=== PATIENT | male | born 1990 | race Caucasian/White ===

== ENCOUNTER 2017-01-06 22:53 | Inpatient (IN) | payer MEDICAID, OTHER ==
[~2017-01-06] VITALS: Ht 175.3 cm; Wt 87.1 kg
[~2017-01-06 22:53] MED LIST: BENZ0.5T6 PO; CITA20TA9 PO; CLOZ100 PO; ESOM20CA31 PO; HALO5 PO; LITH300C3 PO; LORA10I IM; LORA2TAB2 PO; SIME120L PO
[2017-01-06] MEDS ORDERED: DIVA500T52 PO (23:09)
[2017-01-06] MEDS ORDERED: BUSP10TA23 PO (23:09)
[2017-01-06] MEDS ORDERED: LEVO25TA4 PO (23:09)
[2017-01-06] MEDS ORDERED: QUET200T PO (23:09)
[2017-01-06 23:16] LABS: BASOPHILS % (AUTO) 0.4 % (0.0-2.0); EOSINOPHILS % (AUTO) 0.4 % (1.0-6.0); HEMATOCRIT 39.7 % (41-53); HEMOGLOBIN 13.1 g/dL (13.5-17.5); LYMPHOCYTES % (AUTO) 15.5 % (22.0-44.0); MEAN CORPUSCULAR HEMOGLOBIN 29.5 pg (26.0-34.0); MEAN CORPUSCULAR HGB CONC 33.1 G/dL (31.0-37.0); MEAN CORPUSCULAR VOLUME 89 fL (80-100); MONOCYTES # (AUTO) 1.1 K/uL (0.1-1.0); MONOCYTES % (AUTO) 8.6 % (2.0-9.0); NEUTROPHILS # (AUTO) 9.6 K/uL (1.8-7.7); NEUTROPHILS % (AUTO) 75.1 % (40.0-70.0); PLATELET COUNT (AUTO) 234 K/uL (150-450); RED BLOOD CELL COUNT(AUTO) 4.46 MIL/uL (4.50-5.90); RED CELL DISTRIBUTION WIDTH 14.1 % (11.5-14.5); WHITE BLOOD COUNT (AUTO) 12.8 K/uL (4.5-11.0)
[2017-01-06 23:28] LABS: ANION GAP 6 mmol/L (8-16); CALCIUM, TOTAL 8.5 mg/dL (8.8-10.5); CARBON DIOXIDE 30 mmol/L (22-29); CHLORIDE 104 mmol/L (98-107); CREATININE 1.11 mg/dL (0.60-1.30); GLOMERULAR FILTR. RATE CALC > 60 mL/min (>60); POTASSIUM 3.7 mmol/L (3.5-5.1); SODIUM SERUM 140 mmol/L (136-145); UREA NITROGEN, BLOOD 15 mg/dL (7-18)
[2017-01-06 23:34] LABS: ALANINE AMINOTRANSFERASE 17 U/L (12-78); ALBUMIN 3.7 g/dL (3.4-5.0); ASPARTATE AMINOTRANSFERASE 14 U/L (15-37); BILIRUBIN,TOTAL 0.2 mg/dL (0.1-1.0)
[2017-01-06 23:35] LABS: LITHIUM 0.85 mmol/L (0.60-1.20)
[2017-01-07] MEDS ORDERED: HALOPERIDOL LACTATE 5 MG/ML VIAL IM ONE (00:15)
[2017-01-07] MEDS ORDERED: LORazepam 2 MG/ML VIAL IM ONE (00:15)
[2017-01-07 02:30] VITALS: BP 128/88
[2017-01-07 03:14] LABS: APPEARANCE,URINE CLEAR (CLEAR); GLUCOSE, URINE (UA) NEGATIVE (NEGATIVE); KETONES,URINE NEGATIVE (NEGATIVE); LEUKOCYTE ESTERASE ,URINE NEGATIVE (NEGATIVE); OCCULT BLOOD,URINE NEGATIVE (NEGATIVE); PROTEIN,URINE NEGATIVE (NEGATIVE)
[2017-01-07 03:15] LABS: ADD UA MICROSCOPIC NO
[2017-01-07] MEDS: LORazepam 2 MG TABLET PO PRN (08:02)
[2017-01-07 08:56] VITALS: BP 128/94
[2017-01-07] MEDS ORDERED: CloZAPine 100 MG TABLET PO SCH ×2 (09:00→21:00)
[2017-01-07] MEDS ORDERED: BENZTROPINE MESYLATE 0.5 MG TABLET PO SCH (09:00)
[2017-01-07] MEDS: CITALOPRAM HYDROBROMIDE 20 MG TABLET PO SCH (09:00)
[2017-01-07] MEDS ORDERED: BACITRACIN 28.4 GM OINTMENT TP PRN (09:00)
[2017-01-07] MEDS ORDERED: ALBUTEROL SULFATE HFA 90 MCG/PUFF 8 GM INHALER IH PRN (09:00)
[2017-01-07] MEDS ORDERED: BENZOCAINE/MENTHOL LOZENGE [8 LOZENGES/PACKET] MM PRN (09:00)
[2017-01-07] MEDS ORDERED: LOPERAMIDE HCL 2 MG CAPSULE PO PRN (09:00)
[2017-01-07] MEDS ORDERED: CloNIDine HCL 0.1 MG TABLET PO PRN (09:00)
[2017-01-07] MEDS ORDERED: ONDANSETRON HCL 4 MG TABLET PO PRN (09:00)
[2017-01-07] MEDS ORDERED: ACETAMINOPHEN 325 MG TABLET PO PRN (09:00)
[2017-01-07] MEDS ORDERED: PETROLATUM,WHITE 71 GM JELLY TP PRN (09:00)
[2017-01-07] MEDS ORDERED: MAG HYDROX/AL HYDROX/SIMETH ES 30 ML SUSPENSION UDCUP PO PRN (09:00)
[2017-01-07] MEDS ORDERED: MAGNESIUM HYDROXIDE SUSPENSION 30 ML UDCUP PO PRN (09:00)
[2017-01-07] MEDS ORDERED: LITHIUM CARBONATE 300 MG CAPSULE PO SCH (09:00)
[2017-01-07] MEDS ORDERED: IBUPROFEN 600 MG TABLET PO PRN (09:00)
[2017-01-07] MEDS: LEVOTHYROXINE SODIUM 100 MCG TABLET PO SCH (11:17)
[2017-01-07 12:37] VITALS: BP 128/94
[2017-01-07] MEDS ORDERED: LITH600 PO (13:32)
[2017-01-07] MEDS ORDERED: VALPROIC ACID 250 MG CAPSULE PO SCH (17:00)
[2017-01-07] MEDS: VALPROIC ACID 250 MG/5 ML SYRUP UDCUP PO SCH (17:55)
[2017-01-07] MEDS: BENZTROPINE MESYLATE 0.5 MG TABLET PO SCH (17:55)
[2017-01-07 18:50] VITALS: BP 131/79
[2017-01-07] MEDS: LITHIUM CARBONATE 600 MG CAPSULE PO SCH (20:26)
[2017-01-07] MEDS: CloZAPine 100 MG RAPDIS TABLET PO SCH (20:26)
[2017-01-07] MEDS ORDERED: LITHIUM CARBONATE 600 MG CAPSULE PO SCH (21:00)
[2017-01-07] MEDS ORDERED: QUEtiapine FUMARATE 200 MG TABLET PO SCH (21:00)
[2017-01-07] MEDS ORDERED: DIVALPROEX SODIUM 500 MG DR TABLET PO SCH (21:00)
[2017-01-08 06:47] LABS: LITHIUM 0.62 mmol/L (0.60-1.20)
[2017-01-08] MEDS: LEVOTHYROXINE SODIUM 100 MCG TABLET PO SCH (06:47)
[2017-01-08 07:23] LABS: THYROID STIMULATING HORMONE 4.12 uIU/mL (0.36-3.74)
[2017-01-08 08:05] VITALS: BP 116/62
[2017-01-08] MEDS: CloZAPine 100 MG RAPDIS TABLET PO SCH ×2 (08:10→20:28)
[2017-01-08] MEDS: LITHIUM CARBONATE 300 MG CAPSULE PO SCH (08:10)
[2017-01-08] MEDS: VALPROIC ACID 250 MG/5 ML SYRUP UDCUP PO SCH ×2 (08:10→16:30)
[2017-01-08] MEDS: BENZTROPINE MESYLATE 0.5 MG TABLET PO SCH ×2 (08:11→16:29)
[2017-01-08] MEDS: LORazepam 2 MG TABLET PO PRN ×2 (08:11→12:14)
[2017-01-08] MEDS: CITALOPRAM HYDROBROMIDE 20 MG TABLET PO SCH (08:11)
[2017-01-08] MEDS: HALOPERIDOL 5 MG TABLET PO PRN (12:15)
[2017-01-08 16:10] VITALS: BP 126/78
[2017-01-08] MEDS: LITHIUM CARBONATE 600 MG CAPSULE PO SCH (20:28)
[2017-01-08] MEDS: ZOLPIDEM TARTRATE 10 MG TABLET PO PRN (20:51)
[2017-01-09] MEDS: LEVOTHYROXINE SODIUM 100 MCG TABLET PO SCH (06:31)
[2017-01-09 08:40] VITALS: BP 114/75
[2017-01-09] MEDS: CITALOPRAM HYDROBROMIDE 20 MG TABLET PO SCH (08:40)
[2017-01-09] MEDS: BENZTROPINE MESYLATE 0.5 MG TABLET PO SCH ×2 (08:40→17:36)
[2017-01-09] MEDS: CloZAPine 100 MG RAPDIS TABLET PO SCH ×2 (08:41→22:00)
[2017-01-09] MEDS: LITHIUM CARBONATE 300 MG CAPSULE PO SCH (08:41)
[2017-01-09] MEDS: VALPROIC ACID 250 MG/5 ML SYRUP UDCUP PO SCH ×2 (08:41→17:36)
[2017-01-09 17:19] VITALS: BP 119/76
[2017-01-09] MEDS: LITHIUM CARBONATE 600 MG CAPSULE PO SCH (22:00)
[2017-01-10] MEDS: LEVOTHYROXINE SODIUM 100 MCG TABLET PO SCH (06:33)
[2017-01-10] MEDS: CloZAPine 100 MG RAPDIS TABLET PO SCH ×2 (08:16→20:10)
[2017-01-10] MEDS: BENZTROPINE MESYLATE 0.5 MG TABLET PO SCH ×2 (08:16→16:53)
[2017-01-10] MEDS: CITALOPRAM HYDROBROMIDE 20 MG TABLET PO SCH (08:16)
[2017-01-10] MEDS: VALPROIC ACID 250 MG/5 ML SYRUP UDCUP PO SCH ×2 (08:18→16:51)
[2017-01-10] MEDS: LITHIUM CARBONATE 300 MG CAPSULE PO SCH (08:18)
[2017-01-10] MEDS: HALOPERIDOL 5 MG TABLET PO PRN ×2 (08:19→13:10)
[2017-01-10] MEDS: LORazepam 2 MG TABLET PO PRN ×2 (08:19→13:10)
[2017-01-10 12:04] LABS: CLOZAPINE 332 ng/mL (350-650); CLOZAPINE & NORCLOZAPINE 417 ng/mL; NORCLOZAPINE 85 ng/mL (Not Estab.)
[2017-01-10 16:25] VITALS: BP 115/75
[2017-01-10] MEDS: LITHIUM CARBONATE 600 MG CAPSULE PO SCH (20:11)
[2017-01-10] MEDS: ZOLPIDEM TARTRATE 10 MG TABLET PO PRN (21:22)
[2017-01-11] MEDS: LEVOTHYROXINE SODIUM 100 MCG TABLET PO SCH (06:53)
[2017-01-11] MEDS: CITALOPRAM HYDROBROMIDE 20 MG TABLET PO SCH (08:15)
[2017-01-11] MEDS: VALPROIC ACID 250 MG/5 ML SYRUP UDCUP PO SCH ×2 (08:16→16:17)
[2017-01-11] MEDS: BENZTROPINE MESYLATE 0.5 MG TABLET PO SCH ×2 (08:16→16:17)
[2017-01-11] MEDS: CloZAPine 100 MG RAPDIS TABLET PO SCH ×2 (08:17→21:33)
[2017-01-11] MEDS: LITHIUM CARBONATE 300 MG CAPSULE PO SCH (08:17)
[2017-01-11 08:40] VITALS: BP 142/88
[2017-01-11 16:16] VITALS: BP 132/76
[2017-01-11] MEDS: HALOPERIDOL 5 MG TABLET PO PRN (19:45)
[2017-01-11] MEDS: LORazepam 2 MG TABLET PO PRN (19:45)
[2017-01-11] MEDS: LITHIUM CARBONATE 600 MG CAPSULE PO SCH (21:32)
[2017-01-12] MEDS: LEVOTHYROXINE SODIUM 100 MCG TABLET PO SCH (06:35)
[2017-01-12] MEDS: CloZAPine 100 MG RAPDIS TABLET PO SCH ×2 (08:17→21:11)
[2017-01-12] MEDS: LITHIUM CARBONATE 300 MG CAPSULE PO SCH (08:17)
[2017-01-12] MEDS: BENZTROPINE MESYLATE 0.5 MG TABLET PO SCH ×2 (08:17→16:05)
[2017-01-12] MEDS: VALPROIC ACID 250 MG/5 ML SYRUP UDCUP PO SCH ×2 (08:17→16:05)
[2017-01-12] MEDS: CITALOPRAM HYDROBROMIDE 20 MG TABLET PO SCH (08:17)
[2017-01-12 16:16] VITALS: BP 136/79
[2017-01-12] MEDS: LITHIUM CARBONATE 600 MG CAPSULE PO SCH (21:10)
[2017-01-13 06:33] LABS: BASOPHILS % (AUTO) 0.2 % (0.0-2.0); EOSINOPHILS % (AUTO) 1.8 % (1.0-6.0); HEMATOCRIT 39.4 % (41-53); HEMOGLOBIN 13.2 g/dL (13.5-17.5); LYMPHOCYTES # (AUTO) 2.8 K/uL (1.0-4.8); MEAN CORPUSCULAR HGB CONC 33.4 G/dL (31.0-37.0); MEAN CORPUSCULAR VOLUME 90 fL (80-100); MONOCYTES # (AUTO) 0.8 K/uL (0.1-1.0); MONOCYTES % (AUTO) 7.5 % (2.0-9.0); NEUTROPHILS # (AUTO) 7.2 K/uL (1.8-7.7); NEUTROPHILS % (AUTO) 65.5 % (40.0-70.0); PLATELET COUNT (AUTO) 208 K/uL (150-450); RED CELL DISTRIBUTION WIDTH 13.8 % (11.5-14.5)
[2017-01-13] MEDS: LEVOTHYROXINE SODIUM 100 MCG TABLET PO SCH (06:56)
[2017-01-13] MEDS ORDERED: LITH600 PO (08:27)
[2017-01-13] MEDS ORDERED: VALP5L PO (08:27)
[2017-01-13] MEDS ORDERED: PALI234D IM (08:27)
[2017-01-13] MEDS ORDERED: BENZ0.5T6 PO (08:27)
[2017-01-13] MEDS ORDERED: [UNRECOGNIZED DRUG - CODE] PO ×2 (08:27)
[2017-01-13] MEDS ORDERED: CITA20TA17 PO (08:27)
[2017-01-13] MEDS ORDERED: LITH300C3 PO (08:27)
[2017-01-13] MEDS: LITHIUM CARBONATE 300 MG CAPSULE PO SCH (08:37)
[2017-01-13] MEDS: VALPROIC ACID 250 MG/5 ML SYRUP UDCUP PO SCH (08:37)
[2017-01-13] MEDS: CITALOPRAM HYDROBROMIDE 20 MG TABLET PO SCH (08:37)
[2017-01-13] MEDS: HALOPERIDOL 5 MG TABLET PO PRN (08:37)
[2017-01-13] MEDS: BENZTROPINE MESYLATE 0.5 MG TABLET PO SCH (08:37)
[2017-01-13] MEDS: CloZAPine 100 MG RAPDIS TABLET PO SCH (08:37)
[2017-01-13] MEDS: LORazepam 2 MG TABLET PO PRN (08:37)
[2017-01-13] MEDS ORDERED: FERROUS SULFATE 325 MG EC TABLET PO SCH (17:30)
[2017-01-20] MEDS ORDERED: PALIPERIDONE PALMITATE 234 MG/1.5 ML SYRINGE IM SCH (09:00)
== END 2017-01-13 09:15 | DRG 750 ==
LOC: EMS 22:56 → 3EC 01-07 02:30
DX: F25.0 Schizoaffective disorder, bipolar type (principal); E83.51 Hypocalcemia; E03.9 Hypothyroidism, unspecified; F20.0 Paranoid schizophrenia; K59.00 Constipation, unspecified; K21.9 Gastro-esophageal reflux disease without esophagitis; T18.9XXA Foreign body of alimentary tract, part unspecified, initial encounter; F17.200 Nicotine dependence, unspecified, uncomplicated; G47.00 Insomnia, unspecified; F12.90 Cannabis use, unspecified, uncomplicated; Z71.6 Tobacco abuse counseling; Z71.51 Drug abuse counseling and surveillance of drug abuser; X58.XXXA Exposure to other specified factors, initial encounter; Y93.89 Activity, other specified; Y92.89 Other specified places as the place of occurrence of the external cause; Y99.8 Other external cause status; Z79.899 Other long term (current) drug therapy
CPT/HCPCS: 74022; 80159; 82306; 84439; 84443; 87081; 96372; 99285; G0480; J1630; J2060; J3535

== ENCOUNTER 2017-01-13 13:19 | Inpatient (IN) | payer MEDICAID, OTHER ==
[~2017-01-13] VITALS: Ht 185.4 cm; Wt 86.2 kg
[~2017-01-13 13:19] MED LIST changes: +BUSP10TA23 PO; +CITA20TA17 PO; -CITA20TA9 PO; +DIVA500T52 PO; -ESOM20CA31 PO; +LEVO25TA4 PO; +LITH600 PO; +PALI234D IM; +QUET200T PO; -SIME120L PO; +VALP5L PO; +[UNRECOGNIZED DRUG - CODE] PO
[2017-01-14 08:30] VITALS: BP 120/76
[2017-01-14] MEDS: LORazepam 2 MG TABLET PO PRN (08:49)
[2017-01-14] MEDS: HALOPERIDOL 5 MG TABLET PO PRN (08:49)
[2017-01-14] MEDS ORDERED: LOPERAMIDE HCL 2 MG CAPSULE PO PRN (10:15)
[2017-01-14] MEDS ORDERED: MAGNESIUM HYDROXIDE SUSPENSION 30 ML UDCUP PO PRN (10:15)
[2017-01-14] MEDS ORDERED: PETROLATUM,WHITE 71 GM JELLY TP PRN (10:15)
[2017-01-14] MEDS ORDERED: CloNIDine HCL 0.1 MG TABLET PO PRN (10:15)
[2017-01-14] MEDS ORDERED: BACITRACIN 28.4 GM OINTMENT TP PRN (10:15)
[2017-01-14] MEDS ORDERED: ALBUTEROL SULFATE HFA 90 MCG/PUFF 8 GM INHALER IH PRN (10:15)
[2017-01-14] MEDS ORDERED: BENZOCAINE/MENTHOL LOZENGE MM PRN (10:15)
[2017-01-14] MEDS ORDERED: ONDANSETRON HCL 4 MG TABLET PO PRN (10:15)
[2017-01-14] MEDS ORDERED: BENZOCAINE/MENTHOL LOZENGE [8 LOZENGES/PACKET] MM PRN (10:25)
[2017-01-14] MEDS: BENZTROPINE MESYLATE 0.5 MG TABLET PO SCH ×2 (10:26→16:43)
[2017-01-14] MEDS: CITALOPRAM HYDROBROMIDE 20 MG TABLET PO SCH (10:26)
[2017-01-14] MEDS: CloZAPine 100 MG RAPDIS TABLET PO SCH ×2 (10:28→21:14)
[2017-01-14] MEDS: VALPROIC ACID 250 MG/5 ML SYRUP UDCUP PO SCH ×2 (10:29→16:43)
[2017-01-14] MEDS: LITHIUM CARBONATE 300 MG CAPSULE PO SCH (10:29)
[2017-01-14 16:00] VITALS: BP 122/81
[2017-01-14] MEDS: ZOLPIDEM TARTRATE 10 MG TABLET PO PRN (21:14)
[2017-01-14] MEDS: LITHIUM CARBONATE 600 MG CAPSULE PO SCH (21:14)
[2017-01-15] MEDS: LEVOTHYROXINE SODIUM 25 MCG TABLET PO SCH (06:33)
[2017-01-15] MEDS: CloZAPine 100 MG RAPDIS TABLET PO SCH ×2 (08:22→20:08)
[2017-01-15] MEDS: CITALOPRAM HYDROBROMIDE 20 MG TABLET PO SCH (08:22)
[2017-01-15] MEDS: BENZTROPINE MESYLATE 0.5 MG TABLET PO SCH ×2 (08:22→16:51)
[2017-01-15] MEDS: LITHIUM CARBONATE 300 MG CAPSULE PO SCH (08:27)
[2017-01-15] MEDS: HALOPERIDOL 5 MG TABLET PO PRN (08:27)
[2017-01-15] MEDS: LORazepam 2 MG TABLET PO PRN (08:27)
[2017-01-15] MEDS: VALPROIC ACID 250 MG/5 ML SYRUP UDCUP PO SCH ×2 (08:27→16:50)
[2017-01-15 08:45] VITALS: BP 121/74
[2017-01-15 16:00] VITALS: BP 120/78
[2017-01-15] MEDS: LITHIUM CARBONATE 600 MG CAPSULE PO SCH (20:08)
[2017-01-15] MEDS: ZOLPIDEM TARTRATE 10 MG TABLET PO PRN (21:00)
[2017-01-16 06:17] VITALS: BP 117/70
[2017-01-16] MEDS: LEVOTHYROXINE SODIUM 25 MCG TABLET PO SCH (06:39)
[2017-01-16 08:07] VITALS: BP 124/91
[2017-01-16] MEDS: BENZTROPINE MESYLATE 0.5 MG TABLET PO SCH ×2 (08:40→17:14)
[2017-01-16] MEDS: CITALOPRAM HYDROBROMIDE 20 MG TABLET PO SCH (08:40)
[2017-01-16] MEDS: LITHIUM CARBONATE 300 MG CAPSULE PO SCH (08:40)
[2017-01-16] MEDS: VALPROIC ACID 250 MG/5 ML SYRUP UDCUP PO SCH ×2 (08:40→17:14)
[2017-01-16] MEDS: CloZAPine 100 MG RAPDIS TABLET PO SCH ×2 (08:41→20:53)
[2017-01-16] MEDS: HALOPERIDOL 5 MG TABLET PO PRN (09:58)
[2017-01-16] MEDS: LORazepam 2 MG TABLET PO PRN (09:58)
[2017-01-16 16:26] VITALS: BP 113/76
[2017-01-16] MEDS: ZOLPIDEM TARTRATE 10 MG TABLET PO PRN (20:52)
[2017-01-16] MEDS: LITHIUM CARBONATE 600 MG CAPSULE PO SCH (20:53)
[2017-01-16] MEDS ORDERED: HALOPERIDOL LACTATE 5 MG/ML VIAL IM PRN (21:00)
[2017-01-17] MEDS: LEVOTHYROXINE SODIUM 25 MCG TABLET PO SCH (06:45)
[2017-01-17 07:03] LABS: BASOPHILS % (AUTO) 0.8 % (0.0-2.0); EOSINOPHILS % (AUTO) 2.8 % (1.0-6.0); HEMOGLOBIN 13.3 g/dL (13.5-17.5); LYMPHOCYTES # (AUTO) 2.7 K/uL (1.0-4.8); LYMPHOCYTES % (AUTO) 33.1 % (22.0-44.0); MEAN CORPUSCULAR HEMOGLOBIN 29.8 pg (26.0-34.0); MEAN CORPUSCULAR HGB CONC 33.2 G/dL (31.0-37.0); MEAN CORPUSCULAR VOLUME 90 fL (80-100); MONOCYTES # (AUTO) 0.8 K/uL (0.1-1.0); MONOCYTES % (AUTO) 10.1 % (2.0-9.0); NEUTROPHILS # (AUTO) 4.4 K/uL (1.8-7.7); NEUTROPHILS % (AUTO) 53.2 % (40.0-70.0); PLATELET COUNT (AUTO) 225 K/uL (150-450); RED BLOOD CELL COUNT(AUTO) 4.45 MIL/uL (4.50-5.90); RED CELL DISTRIBUTION WIDTH 14.2 % (11.5-14.5); WHITE BLOOD COUNT (AUTO) 8.3 K/uL (4.5-11.0)
[2017-01-17] MEDS: LITHIUM CARBONATE 300 MG CAPSULE PO SCH (09:16)
[2017-01-17] MEDS: BENZTROPINE MESYLATE 0.5 MG TABLET PO SCH ×2 (09:16→16:06)
[2017-01-17] MEDS: VALPROIC ACID 250 MG/5 ML SYRUP UDCUP PO SCH ×2 (09:16→16:06)
[2017-01-17] MEDS: CITALOPRAM HYDROBROMIDE 20 MG TABLET PO SCH (09:16)
[2017-01-17] MEDS: CloZAPine 100 MG RAPDIS TABLET PO SCH ×2 (09:16→20:43)
[2017-01-17 09:31] VITALS: BP 129/64
[2017-01-17] MEDS: LORazepam 2 MG TABLET PO PRN (10:21)
[2017-01-17 16:39] VITALS: BP 106/66
[2017-01-17] MEDS: ZOLPIDEM TARTRATE 10 MG TABLET PO PRN (20:42)
[2017-01-17] MEDS: LITHIUM CARBONATE 600 MG CAPSULE PO SCH (20:42)
[2017-01-18] MEDS: LEVOTHYROXINE SODIUM 25 MCG TABLET PO SCH (06:43)
[2017-01-18] MEDS: FERROUS SULFATE 325 MG EC TABLET PO SCH ×2 (07:03→16:03)
[2017-01-18 08:02] VITALS: BP 120/75
[2017-01-18] MEDS: VALPROIC ACID 250 MG/5 ML SYRUP UDCUP PO SCH ×2 (08:39→16:03)
[2017-01-18] MEDS: BENZTROPINE MESYLATE 0.5 MG TABLET PO SCH ×2 (08:40→16:03)
[2017-01-18] MEDS: CloZAPine 100 MG RAPDIS TABLET PO SCH ×2 (08:40→20:18)
[2017-01-18] MEDS: CITALOPRAM HYDROBROMIDE 20 MG TABLET PO SCH (08:40)
[2017-01-18] MEDS: LITHIUM CARBONATE 300 MG CAPSULE PO SCH (08:40)
[2017-01-18] MEDS: LORazepam 2 MG TABLET PO PRN ×2 (11:32→17:04)
[2017-01-18] MEDS: HALOPERIDOL 5 MG TABLET PO PRN ×2 (11:32→17:04)
[2017-01-18 16:08] VITALS: BP 110/77
[2017-01-18] MEDS ORDERED: HALOPERIDOL LACTATE 5 MG/ML VIAL IM ONE (18:15)
[2017-01-18] MEDS ORDERED: LORazepam 2 MG/ML VIAL IM ONE (18:15)
[2017-01-18] MEDS ORDERED: DiphenhydrAMINE HCL 50 MG/ML VIAL IM ONE (18:15)
[2017-01-18] MEDS: LITHIUM CARBONATE 600 MG CAPSULE PO SCH (20:18)
[2017-01-19] MEDS: FERROUS SULFATE 325 MG EC TABLET PO SCH ×2 (06:49→16:47)
[2017-01-19] MEDS: LEVOTHYROXINE SODIUM 25 MCG TABLET PO SCH (06:49)
[2017-01-19] MEDS: CITALOPRAM HYDROBROMIDE 20 MG TABLET PO SCH (11:30)
[2017-01-19] MEDS: CloZAPine 100 MG RAPDIS TABLET PO SCH ×2 (11:31→20:11)
[2017-01-19] MEDS: LITHIUM CARBONATE 300 MG CAPSULE PO SCH (11:31)
[2017-01-19] MEDS: BENZTROPINE MESYLATE 0.5 MG TABLET PO SCH ×2 (11:31→16:03)
[2017-01-19] MEDS: VALPROIC ACID 250 MG/5 ML SYRUP UDCUP PO SCH ×2 (11:32→16:03)
[2017-01-19] MEDS: LORazepam 2 MG TABLET PO PRN ×3 (11:35→20:47)
[2017-01-19] MEDS: HALOPERIDOL 5 MG TABLET PO PRN (11:35)
[2017-01-19 16:44] VITALS: BP 122/79
[2017-01-19] MEDS: LITHIUM CARBONATE 600 MG CAPSULE PO SCH (20:12)
[2017-01-19] MEDS: ZOLPIDEM TARTRATE 10 MG TABLET PO PRN (22:39)
[2017-01-20] MEDS: FERROUS SULFATE 325 MG EC TABLET PO SCH ×2 (06:51→16:55)
[2017-01-20] MEDS: LEVOTHYROXINE SODIUM 25 MCG TABLET PO SCH (06:51)
[2017-01-20 08:13] VITALS: BP 107/64
[2017-01-20] MEDS: VALPROIC ACID 250 MG/5 ML SYRUP UDCUP PO SCH ×2 (08:16→16:56)
[2017-01-20] MEDS: CloZAPine 100 MG RAPDIS TABLET PO SCH ×2 (08:16→20:28)
[2017-01-20] MEDS: BENZTROPINE MESYLATE 0.5 MG TABLET PO SCH ×2 (08:16→16:56)
[2017-01-20] MEDS: CITALOPRAM HYDROBROMIDE 20 MG TABLET PO SCH (08:16)
[2017-01-20] MEDS: LITHIUM CARBONATE 300 MG CAPSULE PO SCH (08:16)
[2017-01-20] MEDS: PALIPERIDONE PALMITATE 234 MG/1.5 ML SYRINGE IM SCH (10:46)
[2017-01-20] MEDS: HALOPERIDOL 5 MG TABLET PO PRN (13:55)
[2017-01-20] MEDS: LORazepam 2 MG TABLET PO PRN (13:55)
[2017-01-20 16:00] VITALS: BP 128/79
[2017-01-20] MEDS: LITHIUM CARBONATE 600 MG CAPSULE PO SCH (20:28)
[2017-01-20] MEDS: ZOLPIDEM TARTRATE 10 MG TABLET PO PRN (20:28)
[2017-01-21] MEDS: LEVOTHYROXINE SODIUM 25 MCG TABLET PO SCH (06:49)
[2017-01-21] MEDS: FERROUS SULFATE 325 MG EC TABLET PO SCH ×2 (06:52→16:40)
[2017-01-21] MEDS: BENZTROPINE MESYLATE 0.5 MG TABLET PO SCH ×2 (08:26→16:40)
[2017-01-21] MEDS: LITHIUM CARBONATE 300 MG CAPSULE PO SCH (08:26)
[2017-01-21] MEDS: VALPROIC ACID 250 MG/5 ML SYRUP UDCUP PO SCH ×2 (08:26→16:40)
[2017-01-21] MEDS: CITALOPRAM HYDROBROMIDE 20 MG TABLET PO SCH (08:26)
[2017-01-21] MEDS: CloZAPine 100 MG RAPDIS TABLET PO SCH ×2 (08:27→20:43)
[2017-01-21 09:15] VITALS: BP 124/88
[2017-01-21] MEDS: HALOPERIDOL 5 MG TABLET PO PRN ×2 (13:00→17:26)
[2017-01-21] MEDS: LORazepam 2 MG TABLET PO PRN ×2 (13:00→17:26)
[2017-01-21 16:36] VITALS: BP 123/74
[2017-01-21] MEDS: LITHIUM CARBONATE 600 MG CAPSULE PO SCH (20:43)
[2017-01-22] MEDS: LEVOTHYROXINE SODIUM 25 MCG TABLET PO SCH (06:47)
[2017-01-22] MEDS: LITHIUM CARBONATE 300 MG CAPSULE PO SCH (08:51)
[2017-01-22] MEDS: FERROUS SULFATE 325 MG EC TABLET PO SCH ×2 (08:51→16:28)
[2017-01-22] MEDS: VALPROIC ACID 250 MG/5 ML SYRUP UDCUP PO SCH ×2 (08:51→16:28)
[2017-01-22] MEDS: CloZAPine 100 MG RAPDIS TABLET PO SCH ×2 (08:51→20:17)
[2017-01-22] MEDS: BENZTROPINE MESYLATE 0.5 MG TABLET PO SCH ×2 (08:52→16:28)
[2017-01-22] MEDS: CITALOPRAM HYDROBROMIDE 20 MG TABLET PO SCH (08:52)
[2017-01-22] MEDS: HALOPERIDOL 5 MG TABLET PO PRN ×2 (08:57→13:08)
[2017-01-22] MEDS: LORazepam 2 MG TABLET PO PRN ×2 (08:58→13:08)
[2017-01-22 09:39] VITALS: BP 104/62
[2017-01-22 16:18] VITALS: BP 117/77
[2017-01-22] MEDS: LITHIUM CARBONATE 600 MG CAPSULE PO SCH (20:17)
[2017-01-22] MEDS: ZOLPIDEM TARTRATE 10 MG TABLET PO PRN (20:49)
[2017-01-23] MEDS: LEVOTHYROXINE SODIUM 25 MCG TABLET PO SCH (07:01)
[2017-01-23] MEDS: FERROUS SULFATE 325 MG EC TABLET PO SCH ×2 (07:01→16:39)
[2017-01-23] MEDS: CITALOPRAM HYDROBROMIDE 20 MG TABLET PO SCH (08:15)
[2017-01-23] MEDS: LITHIUM CARBONATE 300 MG CAPSULE PO SCH (08:15)
[2017-01-23] MEDS: VALPROIC ACID 250 MG/5 ML SYRUP UDCUP PO SCH ×2 (08:15→16:35)
[2017-01-23] MEDS: CloZAPine 100 MG RAPDIS TABLET PO SCH ×2 (08:17→20:28)
[2017-01-23] MEDS: BENZTROPINE MESYLATE 0.5 MG TABLET PO SCH ×2 (08:18→16:35)
[2017-01-23 08:49] VITALS: BP 127/93
[2017-01-23] MEDS: LORazepam 2 MG TABLET PO PRN ×2 (13:31→17:33)
[2017-01-23 17:31] VITALS: BP 133/87
[2017-01-23] MEDS: LITHIUM CARBONATE 600 MG CAPSULE PO SCH (20:28)
[2017-01-23] MEDS: ZOLPIDEM TARTRATE 10 MG TABLET PO PRN (20:28)
[2017-01-24] MEDS: FERROUS SULFATE 325 MG EC TABLET PO SCH ×2 (06:40→19:17)
[2017-01-24] MEDS: LEVOTHYROXINE SODIUM 25 MCG TABLET PO SCH (06:40)
[2017-01-24 06:54] LABS: BASOPHILS % (AUTO) 0.6 % (0.0-2.0); EOSINOPHILS % (AUTO) 2.8 % (1.0-6.0); HEMATOCRIT 39.9 % (41-53); HEMOGLOBIN 13.2 g/dL (13.5-17.5); LYMPHOCYTES # (AUTO) 2.6 K/uL (1.0-4.8); LYMPHOCYTES % (AUTO) 33.8 % (22.0-44.0); MEAN CORPUSCULAR HEMOGLOBIN 29.8 pg (26.0-34.0); MEAN CORPUSCULAR HGB CONC 33.1 G/dL (31.0-37.0); MEAN CORPUSCULAR VOLUME 90 fL (80-100); MONOCYTES # (AUTO) 0.7 K/uL (0.1-1.0); MONOCYTES % (AUTO) 9.1 % (2.0-9.0); NEUTROPHILS # (AUTO) 4.2 K/uL (1.8-7.7); NEUTROPHILS % (AUTO) 53.7 % (40.0-70.0); PLATELET COUNT (AUTO) 193 K/uL (150-450); RED BLOOD CELL COUNT(AUTO) 4.43 MIL/uL (4.50-5.90); RED CELL DISTRIBUTION WIDTH 14.5 % (11.5-14.5); WHITE BLOOD COUNT (AUTO) 7.7 K/uL (4.5-11.0)
[2017-01-24 08:18] VITALS: BP 97/62
[2017-01-24] MEDS: BENZTROPINE MESYLATE 0.5 MG TABLET PO SCH ×2 (08:56→16:03)
[2017-01-24] MEDS: HALOPERIDOL 5 MG TABLET PO PRN ×2 (08:56→16:03)
[2017-01-24] MEDS: VALPROIC ACID 250 MG/5 ML SYRUP UDCUP PO SCH ×2 (08:56→16:07)
[2017-01-24] MEDS: LORazepam 2 MG TABLET PO PRN ×2 (08:56→16:03)
[2017-01-24] MEDS: LITHIUM CARBONATE 300 MG CAPSULE PO SCH (08:56)
[2017-01-24] MEDS: CITALOPRAM HYDROBROMIDE 20 MG TABLET PO SCH (08:56)
[2017-01-24] MEDS: CloZAPine 100 MG RAPDIS TABLET PO SCH ×2 (08:56→20:20)
[2017-01-24 16:35] VITALS: BP 118/81
[2017-01-24] MEDS: LITHIUM CARBONATE 600 MG CAPSULE PO SCH (20:21)
[2017-01-24] MEDS: ZOLPIDEM TARTRATE 10 MG TABLET PO PRN (20:37)
[2017-01-24] MEDS: IBUPROFEN 600 MG TABLET PO PRN (21:35)
[2017-01-24 21:45] VITALS: BP 120/78
[2017-01-25 06:04] VITALS: BP 123/76
[2017-01-25] MEDS: FERROUS SULFATE 325 MG EC TABLET PO SCH ×2 (06:59→17:02)
[2017-01-25] MEDS: LEVOTHYROXINE SODIUM 25 MCG TABLET PO SCH (06:59)
[2017-01-25] MEDS: LORazepam 2 MG TABLET PO PRN ×2 (07:48→13:40)
[2017-01-25] MEDS: VALPROIC ACID 250 MG/5 ML SYRUP UDCUP PO SCH ×2 (07:48→16:13)
[2017-01-25] MEDS: BENZTROPINE MESYLATE 0.5 MG TABLET PO SCH ×2 (07:48→16:13)
[2017-01-25] MEDS: HALOPERIDOL 5 MG TABLET PO PRN ×2 (07:48→13:40)
[2017-01-25] MEDS: CITALOPRAM HYDROBROMIDE 20 MG TABLET PO SCH (07:48)
[2017-01-25] MEDS: CloZAPine 100 MG RAPDIS TABLET PO SCH ×2 (07:48→20:30)
[2017-01-25] MEDS: LITHIUM CARBONATE 300 MG CAPSULE PO SCH (07:48)
[2017-01-25 10:10] VITALS: BP 107/67
[2017-01-25 16:03] VITALS: BP 121/60
[2017-01-25] MEDS: LITHIUM CARBONATE 600 MG CAPSULE PO SCH (20:30)
[2017-01-25] MEDS: ZOLPIDEM TARTRATE 10 MG TABLET PO PRN (21:42)
[2017-01-26] MEDS: FERROUS SULFATE 325 MG EC TABLET PO SCH ×2 (06:59→16:38)
[2017-01-26] MEDS: LEVOTHYROXINE SODIUM 25 MCG TABLET PO SCH (06:59)
[2017-01-26 08:10] VITALS: BP 112/65
[2017-01-26] MEDS: CITALOPRAM HYDROBROMIDE 20 MG TABLET PO SCH (08:14)
[2017-01-26] MEDS: VALPROIC ACID 250 MG/5 ML SYRUP UDCUP PO SCH ×2 (08:14→16:38)
[2017-01-26] MEDS: BENZTROPINE MESYLATE 0.5 MG TABLET PO SCH ×2 (08:14→16:38)
[2017-01-26] MEDS: LITHIUM CARBONATE 300 MG CAPSULE PO SCH (08:14)
[2017-01-26] MEDS: CloZAPine 100 MG RAPDIS TABLET PO SCH ×2 (08:14→21:02)
[2017-01-26] MEDS: LORazepam 2 MG TABLET PO PRN ×2 (11:55→19:16)
[2017-01-26 16:24] VITALS: BP 117/83
[2017-01-26] MEDS: LITHIUM CARBONATE 600 MG CAPSULE PO SCH (21:02)
[2017-01-26] MEDS: ZOLPIDEM TARTRATE 10 MG TABLET PO PRN (21:35)
[2017-01-27] MEDS: FERROUS SULFATE 325 MG EC TABLET PO SCH ×2 (06:56→17:24)
[2017-01-27] MEDS: LEVOTHYROXINE SODIUM 25 MCG TABLET PO SCH (06:56)
[2017-01-27 08:02] VITALS: BP 118/60
[2017-01-27] MEDS: VALPROIC ACID 250 MG/5 ML SYRUP UDCUP PO SCH ×2 (08:19→17:24)
[2017-01-27] MEDS: CITALOPRAM HYDROBROMIDE 20 MG TABLET PO SCH (08:19)
[2017-01-27] MEDS: CloZAPine 100 MG RAPDIS TABLET PO SCH ×2 (08:19→20:40)
[2017-01-27] MEDS: BENZTROPINE MESYLATE 0.5 MG TABLET PO SCH ×2 (08:19→17:24)
[2017-01-27] MEDS: LITHIUM CARBONATE 300 MG CAPSULE PO SCH (08:19)
[2017-01-27] MEDS: LORazepam 2 MG TABLET PO PRN (14:18)
[2017-01-27] MEDS: HALOPERIDOL 5 MG TABLET PO PRN ×2 (14:18→15:28)
[2017-01-27 16:31] VITALS: BP 115/78
[2017-01-27] MEDS: ZOLPIDEM TARTRATE 10 MG TABLET PO PRN (20:31)
[2017-01-27] MEDS: LITHIUM CARBONATE 600 MG CAPSULE PO SCH (20:40)
[2017-01-28] MEDS: LEVOTHYROXINE SODIUM 25 MCG TABLET PO SCH (07:01)
[2017-01-28] MEDS: FERROUS SULFATE 325 MG EC TABLET PO SCH ×2 (07:01→16:35)
[2017-01-28 08:30] VITALS: BP 118/77
[2017-01-28] MEDS: HALOPERIDOL 5 MG TABLET PO PRN ×2 (09:10→13:18)
[2017-01-28] MEDS: CloZAPine 100 MG RAPDIS TABLET PO SCH ×2 (09:11→20:15)
[2017-01-28] MEDS: LITHIUM CARBONATE 300 MG CAPSULE PO SCH (09:11)
[2017-01-28] MEDS: LORazepam 2 MG TABLET PO PRN ×2 (09:12→13:18)
[2017-01-28] MEDS: BENZTROPINE MESYLATE 0.5 MG TABLET PO SCH ×2 (09:12→16:14)
[2017-01-28] MEDS: VALPROIC ACID 250 MG/5 ML SYRUP UDCUP PO SCH ×2 (09:12→16:14)
[2017-01-28] MEDS: CITALOPRAM HYDROBROMIDE 20 MG TABLET PO SCH (09:12)
[2017-01-28 17:48] VITALS: BP 121/81
[2017-01-28] MEDS ORDERED: HALOPERIDOL LACTATE 5 MG/ML VIAL IM ONE (19:15)
[2017-01-28] MEDS ORDERED: LORazepam 2 MG/ML VIAL IM ONE (19:15)
[2017-01-28] MEDS ORDERED: DiphenhydrAMINE HCL 50 MG/ML VIAL IM ONE (19:15)
[2017-01-28] MEDS: LITHIUM CARBONATE 600 MG CAPSULE PO SCH (20:15)
[2017-01-29] MEDS: LEVOTHYROXINE SODIUM 25 MCG TABLET PO SCH (06:39)
[2017-01-29] MEDS: FERROUS SULFATE 325 MG EC TABLET PO SCH ×2 (06:39→16:41)
[2017-01-29] MEDS: BENZTROPINE MESYLATE 0.5 MG TABLET PO SCH ×2 (07:34→16:41)
[2017-01-29] MEDS: HALOPERIDOL 5 MG TABLET PO PRN ×2 (07:34→13:51)
[2017-01-29] MEDS: LITHIUM CARBONATE 300 MG CAPSULE PO SCH (07:34)
[2017-01-29] MEDS: VALPROIC ACID 250 MG/5 ML SYRUP UDCUP PO SCH ×2 (07:34→16:41)
[2017-01-29] MEDS: LORazepam 2 MG TABLET PO PRN ×2 (07:34→13:51)
[2017-01-29] MEDS: CloZAPine 100 MG RAPDIS TABLET PO SCH ×2 (07:34→20:04)
[2017-01-29] MEDS: CITALOPRAM HYDROBROMIDE 20 MG TABLET PO SCH (07:35)
[2017-01-29 08:04] VITALS: BP 119/74
[2017-01-29] MEDS ORDERED: DiphenhydrAMINE HCL 50 MG/ML VIAL IM ONE (14:00)
[2017-01-29] MEDS ORDERED: HALOPERIDOL LACTATE 5 MG/ML VIAL IM ONE (14:00)
[2017-01-29] MEDS ORDERED: LORazepam 2 MG/ML VIAL IM ONE (14:00)
[2017-01-29 16:00] VITALS: BP 118/75
[2017-01-29] MEDS: LITHIUM CARBONATE 600 MG CAPSULE PO SCH (20:04)
[2017-01-29] MEDS: ZOLPIDEM TARTRATE 10 MG TABLET PO PRN (21:01)
[2017-01-30] MEDS: LEVOTHYROXINE SODIUM 25 MCG TABLET PO SCH (06:56)
[2017-01-30] MEDS: FERROUS SULFATE 325 MG EC TABLET PO SCH ×2 (06:56→16:27)
[2017-01-30] MEDS: HALOPERIDOL 5 MG TABLET PO PRN (08:24)
[2017-01-30] MEDS: LORazepam 2 MG TABLET PO PRN (08:25)
[2017-01-30] MEDS: LITHIUM CARBONATE 300 MG CAPSULE PO SCH (08:25)
[2017-01-30] MEDS: VALPROIC ACID 250 MG/5 ML SYRUP UDCUP PO SCH ×2 (08:25→16:27)
[2017-01-30] MEDS: CITALOPRAM HYDROBROMIDE 20 MG TABLET PO SCH (08:26)
[2017-01-30] MEDS: CloZAPine 100 MG RAPDIS TABLET PO SCH ×2 (08:26→20:30)
[2017-01-30] MEDS: BENZTROPINE MESYLATE 0.5 MG TABLET PO SCH ×2 (08:26→16:27)
[2017-01-30 17:00] VITALS: BP 124/74
[2017-01-30] MEDS: LITHIUM CARBONATE 600 MG CAPSULE PO SCH (20:30)
[2017-01-31 06:16] LABS: BASOPHILS % (AUTO) 0.5 % (0.0-2.0); EOSINOPHILS % (AUTO) 1.8 % (1.0-6.0); HEMATOCRIT 41.2 % (41-53); HEMOGLOBIN 13.5 g/dL (13.5-17.5); LYMPHOCYTES # (AUTO) 2.6 K/uL (1.0-4.8); LYMPHOCYTES % (AUTO) 26.8 % (22.0-44.0); MEAN CORPUSCULAR HEMOGLOBIN 29.5 pg (26.0-34.0); MEAN CORPUSCULAR HGB CONC 32.8 G/dL (31.0-37.0); MEAN CORPUSCULAR VOLUME 90 fL (80-100); MONOCYTES # (AUTO) 0.8 K/uL (0.1-1.0); MONOCYTES % (AUTO) 8.9 % (2.0-9.0); NEUTROPHILS # (AUTO) 5.9 K/uL (1.8-7.7); PLATELET COUNT (AUTO) 211 K/uL (150-450); RED BLOOD CELL COUNT(AUTO) 4.59 MIL/uL (4.50-5.90); RED CELL DISTRIBUTION WIDTH 14.6 % (11.5-14.5); WHITE BLOOD COUNT (AUTO) 9.5 K/uL (4.5-11.0)
[2017-01-31] MEDS: FERROUS SULFATE 325 MG EC TABLET PO SCH ×2 (07:01→16:11)
[2017-01-31] MEDS: LEVOTHYROXINE SODIUM 25 MCG TABLET PO SCH (07:01)
[2017-01-31] MEDS: CITALOPRAM HYDROBROMIDE 20 MG TABLET PO SCH (08:37)
[2017-01-31] MEDS: LITHIUM CARBONATE 300 MG CAPSULE PO SCH (08:37)
[2017-01-31] MEDS: CloZAPine 100 MG RAPDIS TABLET PO SCH ×2 (08:38→20:11)
[2017-01-31] MEDS: LORazepam 2 MG TABLET PO PRN ×2 (08:38→14:36)
[2017-01-31] MEDS: BENZTROPINE MESYLATE 0.5 MG TABLET PO SCH ×2 (08:39→16:11)
[2017-01-31] MEDS: VALPROIC ACID 250 MG/5 ML SYRUP UDCUP PO SCH ×2 (08:39→16:10)
[2017-01-31] MEDS: HALOPERIDOL 5 MG TABLET PO PRN ×2 (09:17→14:36)
[2017-01-31] MEDS ORDERED: LORazepam 2 MG/ML VIAL ONE (16:58)
[2017-01-31] MEDS ORDERED: DiphenhydrAMINE HCL 50 MG/ML VIAL ONE (16:59)
[2017-01-31] MEDS ORDERED: DiphenhydrAMINE HCL 50 MG/ML VIAL IM ONE (17:00)
[2017-01-31] MEDS ORDERED: LORazepam 2 MG/ML VIAL IM ONE (17:00)
[2017-01-31] MEDS ORDERED: HALOPERIDOL LACTATE 5 MG/ML VIAL IM ONE (17:00)
[2017-01-31] MEDS: LITHIUM CARBONATE 600 MG CAPSULE PO SCH (20:11)
[2017-01-31] MEDS: ZOLPIDEM TARTRATE 10 MG TABLET PO PRN (20:15)
[2017-02-01] MEDS: FERROUS SULFATE 325 MG EC TABLET PO SCH ×2 (07:03→17:04)
[2017-02-01] MEDS: LEVOTHYROXINE SODIUM 25 MCG TABLET PO SCH (07:03)
[2017-02-01 08:12] VITALS: BP 100/65
[2017-02-01] MEDS: CloZAPine 100 MG RAPDIS TABLET PO SCH ×2 (08:31→20:31)
[2017-02-01] MEDS: HALOPERIDOL 5 MG TABLET PO PRN (08:31)
[2017-02-01] MEDS: BENZTROPINE MESYLATE 0.5 MG TABLET PO SCH ×2 (08:31→17:04)
[2017-02-01] MEDS: VALPROIC ACID 250 MG/5 ML SYRUP UDCUP PO SCH ×2 (08:31→17:04)
[2017-02-01] MEDS: CITALOPRAM HYDROBROMIDE 20 MG TABLET PO SCH (08:31)
[2017-02-01] MEDS: LORazepam 2 MG TABLET PO PRN (08:32)
[2017-02-01] MEDS: LITHIUM CARBONATE 300 MG CAPSULE PO SCH (08:33)
[2017-02-01] MEDS ORDERED: DiphenhydrAMINE HCL 50 MG/ML VIAL IM ONE ×2 (11:20→15:30)
[2017-02-01] MEDS ORDERED: LORazepam 2 MG/ML VIAL IM ONE ×3 (11:20→15:30)
[2017-02-01] MEDS ORDERED: DiphenhydrAMINE HCL 50 MG/ML VIAL ONE (11:21)
[2017-02-01] MEDS ORDERED: LORazepam 2 MG/ML VIAL ONE (11:21)
[2017-02-01] MEDS ORDERED: FluPHENAZine HCL 2.5 MG/ML INJ IM ONE (15:30)
[2017-02-01 16:15] VITALS: BP 131/90
[2017-02-01] MEDS: ZOLPIDEM TARTRATE 10 MG TABLET PO PRN (20:30)
[2017-02-01] MEDS: LITHIUM CARBONATE 600 MG CAPSULE PO SCH (20:31)
[2017-02-02] MEDS: FERROUS SULFATE 325 MG EC TABLET PO SCH ×2 (06:59→16:43)
[2017-02-02] MEDS: LEVOTHYROXINE SODIUM 25 MCG TABLET PO SCH (06:59)
[2017-02-02] MEDS: VALPROIC ACID 250 MG/5 ML SYRUP UDCUP PO SCH ×2 (08:09→16:43)
[2017-02-02] MEDS: CloZAPine 100 MG RAPDIS TABLET PO SCH ×2 (08:11→20:30)
[2017-02-02] MEDS: LITHIUM CARBONATE 300 MG CAPSULE PO SCH (08:11)
[2017-02-02] MEDS: BENZTROPINE MESYLATE 0.5 MG TABLET PO SCH ×2 (08:12→16:43)
[2017-02-02] MEDS: CITALOPRAM HYDROBROMIDE 20 MG TABLET PO SCH (08:12)
[2017-02-02] MEDS: HALOPERIDOL 5 MG TABLET PO PRN ×2 (12:03→18:05)
[2017-02-02] MEDS: LORazepam 2 MG TABLET PO PRN ×2 (12:03→19:01)
[2017-02-02 16:15] VITALS: BP 128/78
[2017-02-02] MEDS: LITHIUM CARBONATE 600 MG CAPSULE PO SCH (20:30)
[2017-02-02] MEDS: ZOLPIDEM TARTRATE 10 MG TABLET PO PRN (21:42)
[2017-02-03] MEDS: FERROUS SULFATE 325 MG EC TABLET PO SCH ×2 (06:50→17:26)
[2017-02-03] MEDS: LEVOTHYROXINE SODIUM 25 MCG TABLET PO SCH (06:50)
[2017-02-03] MEDS: CITALOPRAM HYDROBROMIDE 20 MG TABLET PO SCH (08:22)
[2017-02-03] MEDS: LITHIUM CARBONATE 300 MG CAPSULE PO SCH (08:22)
[2017-02-03] MEDS: BENZTROPINE MESYLATE 0.5 MG TABLET PO SCH ×2 (08:22→17:26)
[2017-02-03] MEDS: HALOPERIDOL 5 MG TABLET PO PRN ×3 (08:22→18:20)
[2017-02-03] MEDS: LORazepam 2 MG TABLET PO PRN ×3 (08:22→18:20)
[2017-02-03] MEDS: CloZAPine 100 MG RAPDIS TABLET PO SCH ×2 (08:22→20:45)
[2017-02-03] MEDS: VALPROIC ACID 250 MG/5 ML SYRUP UDCUP PO SCH ×2 (08:23→17:26)
[2017-02-03] MEDS ORDERED: LORazepam 2 MG/ML VIAL ONE (13:58)
[2017-02-03] MEDS ORDERED: LORazepam 2 MG/ML VIAL IM ONE (14:00)
[2017-02-03] MEDS ORDERED: DiphenhydrAMINE HCL 50 MG/ML VIAL IM ONE (14:00)
[2017-02-03] MEDS: ZOLPIDEM TARTRATE 10 MG TABLET PO PRN (20:45)
[2017-02-03] MEDS: LITHIUM CARBONATE 600 MG CAPSULE PO SCH (20:45)
[2017-02-04] MEDS: LEVOTHYROXINE SODIUM 25 MCG TABLET PO SCH (06:36)
[2017-02-04] MEDS: FERROUS SULFATE 325 MG EC TABLET PO SCH ×2 (06:36→16:20)
[2017-02-04] MEDS: LORazepam 2 MG TABLET PO PRN ×2 (08:20→12:39)
[2017-02-04] MEDS: CITALOPRAM HYDROBROMIDE 20 MG TABLET PO SCH (08:21)
[2017-02-04] MEDS: LITHIUM CARBONATE 300 MG CAPSULE PO SCH (08:21)
[2017-02-04] MEDS: BENZTROPINE MESYLATE 0.5 MG TABLET PO SCH ×2 (08:21→16:21)
[2017-02-04] MEDS: HALOPERIDOL 5 MG TABLET PO PRN ×2 (08:21→12:39)
[2017-02-04] MEDS: CloZAPine 100 MG RAPDIS TABLET PO SCH ×2 (08:21→20:17)
[2017-02-04] MEDS: VALPROIC ACID 250 MG/5 ML SYRUP UDCUP PO SCH ×2 (08:22→16:20)
[2017-02-04] MEDS ORDERED: DiphenhydrAMINE HCL 50 MG/ML VIAL IM ONE (16:30)
[2017-02-04] MEDS ORDERED: HALOPERIDOL LACTATE 5 MG/ML VIAL IM ONE (16:30)
[2017-02-04] MEDS ORDERED: LORazepam 2 MG/ML VIAL IM ONE (16:30)
[2017-02-04] MEDS: ZOLPIDEM TARTRATE 10 MG TABLET PO PRN (20:17)
[2017-02-04] MEDS: LITHIUM CARBONATE 600 MG CAPSULE PO SCH (20:17)
[2017-02-05] MEDS: FERROUS SULFATE 325 MG EC TABLET PO SCH ×2 (06:46→16:08)
[2017-02-05] MEDS: LEVOTHYROXINE SODIUM 25 MCG TABLET PO SCH (06:46)
[2017-02-05] MEDS: LORazepam 2 MG TABLET PO PRN ×3 (07:58→20:50)
[2017-02-05] MEDS: HALOPERIDOL 5 MG TABLET PO PRN ×2 (07:58→11:59)
[2017-02-05] MEDS: VALPROIC ACID 250 MG/5 ML SYRUP UDCUP PO SCH ×2 (08:03→16:08)
[2017-02-05] MEDS: CloZAPine 100 MG RAPDIS TABLET PO SCH ×2 (08:04→20:27)
[2017-02-05] MEDS: BENZTROPINE MESYLATE 0.5 MG TABLET PO SCH ×2 (08:05→16:09)
[2017-02-05] MEDS: CITALOPRAM HYDROBROMIDE 20 MG TABLET PO SCH (08:05)
[2017-02-05] MEDS: LITHIUM CARBONATE 300 MG CAPSULE PO SCH (08:05)
[2017-02-05] MEDS: BACITRACIN 28.4 GM OINTMENT TP SCH (12:47)
[2017-02-05 16:20] VITALS: BP 125/93
[2017-02-05] MEDS: LITHIUM CARBONATE 600 MG CAPSULE PO SCH (20:27)
[2017-02-05 20:48] VITALS: BP 132/98
[2017-02-05] MEDS: ZOLPIDEM TARTRATE 10 MG TABLET PO PRN (21:20)
[2017-02-06] MEDS: LEVOTHYROXINE SODIUM 25 MCG TABLET PO SCH (06:54)
[2017-02-06] MEDS: FERROUS SULFATE 325 MG EC TABLET PO SCH ×2 (06:54→16:15)
[2017-02-06] MEDS: CITALOPRAM HYDROBROMIDE 20 MG TABLET PO SCH (09:30)
[2017-02-06] MEDS: LITHIUM CARBONATE 300 MG CAPSULE PO SCH (09:30)
[2017-02-06] MEDS: BENZTROPINE MESYLATE 0.5 MG TABLET PO SCH ×2 (09:31→16:15)
[2017-02-06] MEDS: CloZAPine 100 MG RAPDIS TABLET PO SCH ×2 (09:33→20:25)
[2017-02-06] MEDS: BACITRACIN 28.4 GM OINTMENT TP SCH (09:34)
[2017-02-06] MEDS: VALPROIC ACID 250 MG/5 ML SYRUP UDCUP PO SCH ×2 (09:38→16:15)
[2017-02-06 14:45] LABS: CLOZAPINE 523 ng/mL (350-650); CLOZAPINE & NORCLOZAPINE 635 ng/mL; NORCLOZAPINE 112 ng/mL (Not Estab.)
[2017-02-06 16:00] VITALS: BP 122/78
[2017-02-06] MEDS: LORazepam 2 MG TABLET PO PRN (16:35)
[2017-02-06] MEDS: LITHIUM CARBONATE 600 MG CAPSULE PO SCH (20:24)
[2017-02-06] MEDS: ZOLPIDEM TARTRATE 10 MG TABLET PO PRN (21:32)
[2017-02-07] MEDS: LEVOTHYROXINE SODIUM 25 MCG TABLET PO SCH (06:41)
[2017-02-07 06:59] LABS: BASOPHILS % (AUTO) 0.7 % (0.0-2.0); HEMATOCRIT 40.9 % (41-53); HEMOGLOBIN 13.4 g/dL (13.5-17.5); LYMPHOCYTES # (AUTO) 2.3 K/uL (1.0-4.8); LYMPHOCYTES % (AUTO) 28.2 % (22.0-44.0); MEAN CORPUSCULAR HEMOGLOBIN 29.5 pg (26.0-34.0); MEAN CORPUSCULAR HGB CONC 32.7 G/dL (31.0-37.0); MEAN CORPUSCULAR VOLUME 90 fL (80-100); MONOCYTES # (AUTO) 0.8 K/uL (0.1-1.0); MONOCYTES % (AUTO) 9.5 % (2.0-9.0); NEUTROPHILS # (AUTO) 4.7 K/uL (1.8-7.7); NEUTROPHILS % (AUTO) 57.6 % (40.0-70.0); PLATELET COUNT (AUTO) 190 K/uL (150-450); RED BLOOD CELL COUNT(AUTO) 4.54 MIL/uL (4.50-5.90); RED CELL DISTRIBUTION WIDTH 14.4 % (11.5-14.5); WHITE BLOOD COUNT (AUTO) 8.2 K/uL (4.5-11.0)
[2017-02-07 07:50] LABS: ALANINE AMINOTRANSFERASE 23 U/L (12-78); ALBUMIN 3.2 g/dL (3.4-5.0); ANION GAP 8 mmol/L (8-16); ASPARTATE AMINOTRANSFERASE 25 U/L (15-37); BILIRUBIN,TOTAL 0.3 mg/dL (0.1-1.0); CALCIUM, TOTAL 8.8 mg/dL (8.8-10.5); CARBON DIOXIDE 30 mmol/L (22-29); CHLORIDE 106 mmol/L (98-107); CHOL/HDL RATIO 2.6 (4.2-7.3); CREATININE 0.96 mg/dL (0.60-1.30); GLOMERULAR FILTR. RATE CALC > 60 mL/min (>60); POTASSIUM 4.3 mmol/L (3.5-5.1); SODIUM SERUM 144 mmol/L (136-145); TOTAL PROTEIN, SERUM 6.7 g/dL (6.4-8.2); UREA NITROGEN, BLOOD 13 mg/dL (7-18)
[2017-02-07] MEDS: LITHIUM CARBONATE 300 MG CAPSULE PO SCH (08:07)
[2017-02-07] MEDS: HALOPERIDOL 5 MG TABLET PO PRN ×2 (08:07→12:19)
[2017-02-07] MEDS: LORazepam 2 MG TABLET PO PRN ×2 (08:07→12:19)
[2017-02-07] MEDS: VALPROIC ACID 250 MG/5 ML SYRUP UDCUP PO SCH ×2 (08:07→18:30)
[2017-02-07] MEDS: FERROUS SULFATE 325 MG EC TABLET PO SCH ×2 (08:07→18:30)
[2017-02-07] MEDS: CloZAPine 100 MG RAPDIS TABLET PO SCH ×2 (08:08→21:26)
[2017-02-07] MEDS: BENZTROPINE MESYLATE 0.5 MG TABLET PO SCH ×2 (08:08→18:30)
[2017-02-07] MEDS: CITALOPRAM HYDROBROMIDE 20 MG TABLET PO SCH (08:09)
[2017-02-07] MEDS: BACITRACIN 28.4 GM OINTMENT TP SCH (08:22)
[2017-02-07 13:15] VITALS: BP 116/78
[2017-02-07] MEDS ORDERED: LORazepam 2 MG/ML VIAL ONE (16:43)
[2017-02-07] MEDS ORDERED: DiphenhydrAMINE HCL 50 MG/ML VIAL ONE (16:43)
[2017-02-07] MEDS ORDERED: LORazepam 2 MG/ML VIAL IM ONE (16:45)
[2017-02-07] MEDS ORDERED: HALOPERIDOL LACTATE 5 MG/ML VIAL IM ONE (16:45)
[2017-02-07] MEDS ORDERED: DiphenhydrAMINE HCL 50 MG/ML VIAL IM ONE (16:45)
[2017-02-07 18:00] VITALS: BP 118/81
[2017-02-07] MEDS: LITHIUM CARBONATE 600 MG CAPSULE PO SCH (21:24)
[2017-02-07] MEDS: ZOLPIDEM TARTRATE 10 MG TABLET PO PRN (23:13)
[2017-02-07] MEDS: ACETAMINOPHEN 325 MG TABLET PO PRN (23:54)
[2017-02-08] MEDS: LEVOTHYROXINE SODIUM 25 MCG TABLET PO SCH (07:00)
[2017-02-08] MEDS: FERROUS SULFATE 325 MG EC TABLET PO SCH ×2 (07:06→17:36)
[2017-02-08] MEDS: LITHIUM CARBONATE 300 MG CAPSULE PO SCH (09:22)
[2017-02-08] MEDS: CHOLECALCIFEROL (VIT D3) 1,000 UNITS TABLET PO SCH (09:22)
[2017-02-08] MEDS: CITALOPRAM HYDROBROMIDE 20 MG TABLET PO SCH (09:23)
[2017-02-08] MEDS: BENZTROPINE MESYLATE 0.5 MG TABLET PO SCH ×2 (09:23→17:36)
[2017-02-08] MEDS: CloZAPine 100 MG RAPDIS TABLET PO SCH ×2 (09:25→20:08)
[2017-02-08] MEDS: BACITRACIN 28.4 GM OINTMENT TP SCH (09:41)
[2017-02-08] MEDS: VALPROIC ACID 250 MG/5 ML SYRUP UDCUP PO SCH ×2 (09:41→17:36)
[2017-02-08 16:00] VITALS: BP 107/72
[2017-02-08] MEDS: LITHIUM CARBONATE 600 MG CAPSULE PO SCH (20:08)
[2017-02-08] MEDS: ZOLPIDEM TARTRATE 10 MG TABLET PO PRN (20:10)
[2017-02-09] MEDS: FERROUS SULFATE 325 MG EC TABLET PO SCH ×2 (06:40→16:35)
[2017-02-09] MEDS: LEVOTHYROXINE SODIUM 25 MCG TABLET PO SCH (06:40)
[2017-02-09] MEDS: LITHIUM CARBONATE 300 MG CAPSULE PO SCH (07:56)
[2017-02-09] MEDS: CHOLECALCIFEROL (VIT D3) 1,000 UNITS TABLET PO SCH (07:56)
[2017-02-09] MEDS: BACITRACIN 28.4 GM OINTMENT TP SCH (07:57)
[2017-02-09] MEDS: CloZAPine 100 MG RAPDIS TABLET PO SCH ×2 (07:57→20:17)
[2017-02-09] MEDS: BENZTROPINE MESYLATE 0.5 MG TABLET PO SCH ×2 (07:58→16:35)
[2017-02-09] MEDS: CITALOPRAM HYDROBROMIDE 20 MG TABLET PO SCH (07:58)
[2017-02-09] MEDS: VALPROIC ACID 250 MG/5 ML SYRUP UDCUP PO SCH ×2 (07:59→16:35)
[2017-02-09] MEDS: LORazepam 2 MG TABLET PO PRN ×3 (08:00→20:17)
[2017-02-09 08:30] VITALS: BP 131/95
[2017-02-09] MEDS: HALOPERIDOL 5 MG TABLET PO PRN (14:15)
[2017-02-09] MEDS: LITHIUM CARBONATE 600 MG CAPSULE PO SCH (20:17)
[2017-02-09] MEDS: ZOLPIDEM TARTRATE 10 MG TABLET PO PRN (20:17)
[2017-02-09 21:18] VITALS: BP 126/74
[2017-02-10] MEDS: LEVOTHYROXINE SODIUM 25 MCG TABLET PO SCH (06:49)
[2017-02-10] MEDS: FERROUS SULFATE 325 MG EC TABLET PO SCH ×2 (06:54→17:15)
[2017-02-10 08:18] VITALS: BP 120/77
[2017-02-10] MEDS: BACITRACIN 28.4 GM OINTMENT TP SCH (09:17)
[2017-02-10] MEDS: CloZAPine 100 MG RAPDIS TABLET PO SCH ×2 (09:18→20:21)
[2017-02-10] MEDS: CHOLECALCIFEROL (VIT D3) 1,000 UNITS TABLET PO SCH (09:18)
[2017-02-10] MEDS: BENZTROPINE MESYLATE 0.5 MG TABLET PO SCH ×2 (09:18→16:17)
[2017-02-10] MEDS: LITHIUM CARBONATE 300 MG CAPSULE PO SCH (09:18)
[2017-02-10] MEDS: CITALOPRAM HYDROBROMIDE 20 MG TABLET PO SCH (09:18)
[2017-02-10] MEDS: VALPROIC ACID 250 MG/5 ML SYRUP UDCUP PO SCH ×2 (09:19→16:17)
[2017-02-10] MEDS: LORazepam 2 MG TABLET PO PRN (15:19)
[2017-02-10] MEDS: HALOPERIDOL 5 MG TABLET PO PRN (15:19)
[2017-02-10 16:30] VITALS: BP 121/89
[2017-02-10] MEDS: LITHIUM CARBONATE 600 MG CAPSULE PO SCH (20:21)
[2017-02-11] MEDS: FERROUS SULFATE 325 MG EC TABLET PO SCH ×2 (06:33→17:00)
[2017-02-11] MEDS: LEVOTHYROXINE SODIUM 25 MCG TABLET PO SCH (06:33)
[2017-02-11 08:10] VITALS: BP 130/86
[2017-02-11] MEDS: LITHIUM CARBONATE 300 MG CAPSULE PO SCH (08:25)
[2017-02-11] MEDS: LORazepam 2 MG TABLET PO PRN ×2 (08:25→12:43)
[2017-02-11] MEDS: HALOPERIDOL 5 MG TABLET PO PRN ×2 (08:25→12:43)
[2017-02-11] MEDS: VALPROIC ACID 250 MG/5 ML SYRUP UDCUP PO SCH ×2 (08:25→16:18)
[2017-02-11] MEDS: CloZAPine 100 MG RAPDIS TABLET PO SCH ×2 (08:25→21:41)
[2017-02-11] MEDS: CHOLECALCIFEROL (VIT D3) 1,000 UNITS TABLET PO SCH (08:25)
[2017-02-11] MEDS: CITALOPRAM HYDROBROMIDE 20 MG TABLET PO SCH (08:28)
[2017-02-11] MEDS: BENZTROPINE MESYLATE 0.5 MG TABLET PO SCH ×2 (08:28→16:19)
[2017-02-11] MEDS: BACITRACIN 28.4 GM OINTMENT TP SCH (08:28)
[2017-02-11 16:00] VITALS: BP 110/73
[2017-02-11] MEDS: LITHIUM CARBONATE 600 MG CAPSULE PO SCH (21:41)
[2017-02-12] MEDS: FERROUS SULFATE 325 MG EC TABLET PO SCH ×2 (06:33→17:45)
[2017-02-12] MEDS: LEVOTHYROXINE SODIUM 25 MCG TABLET PO SCH (06:33)
[2017-02-12] MEDS: VALPROIC ACID 250 MG/5 ML SYRUP UDCUP PO SCH ×2 (07:47→16:03)
[2017-02-12] MEDS: CloZAPine 100 MG RAPDIS TABLET PO SCH ×2 (07:47→21:25)
[2017-02-12] MEDS: CITALOPRAM HYDROBROMIDE 20 MG TABLET PO SCH (07:47)
[2017-02-12] MEDS: HALOPERIDOL 5 MG TABLET PO PRN ×2 (07:47→14:27)
[2017-02-12] MEDS: BENZTROPINE MESYLATE 0.5 MG TABLET PO SCH ×2 (07:47→16:02)
[2017-02-12] MEDS: CHOLECALCIFEROL (VIT D3) 1,000 UNITS TABLET PO SCH (07:47)
[2017-02-12] MEDS: LORazepam 2 MG TABLET PO PRN ×2 (07:47→14:27)
[2017-02-12] MEDS: LITHIUM CARBONATE 300 MG CAPSULE PO SCH (07:47)
[2017-02-12] MEDS: BACITRACIN 28.4 GM OINTMENT TP SCH (07:51)
[2017-02-12 08:21] VITALS: BP 154/90
[2017-02-12] MEDS ORDERED: DiphenhydrAMINE HCL 50 MG/ML VIAL IM ONE (08:45)
[2017-02-12] MEDS ORDERED: LORazepam 2 MG/ML VIAL IM ONE (08:45)
[2017-02-12 16:00] VITALS: BP 115/85
[2017-02-12] MEDS: LITHIUM CARBONATE 600 MG CAPSULE PO SCH (21:25)
[2017-02-13] MEDS: LEVOTHYROXINE SODIUM 25 MCG TABLET PO SCH (06:45)
[2017-02-13] MEDS: FERROUS SULFATE 325 MG EC TABLET PO SCH ×2 (06:45→16:10)
[2017-02-13 08:00] VITALS: BP 128/92
[2017-02-13] MEDS: BACITRACIN 28.4 GM OINTMENT TP SCH (09:00)
[2017-02-13] MEDS: CloZAPine 100 MG RAPDIS TABLET PO SCH ×2 (10:28→20:01)
[2017-02-13] MEDS: BENZTROPINE MESYLATE 0.5 MG TABLET PO SCH ×2 (10:28→16:10)
[2017-02-13] MEDS: CHOLECALCIFEROL (VIT D3) 1,000 UNITS TABLET PO SCH (10:28)
[2017-02-13] MEDS: CITALOPRAM HYDROBROMIDE 20 MG TABLET PO SCH (10:28)
[2017-02-13] MEDS: LITHIUM CARBONATE 300 MG CAPSULE PO SCH (10:29)
[2017-02-13] MEDS: VALPROIC ACID 250 MG/5 ML SYRUP UDCUP PO SCH ×2 (10:29→16:10)
[2017-02-13] MEDS: LORazepam 2 MG TABLET PO PRN ×2 (13:02→18:35)
[2017-02-13] MEDS: HALOPERIDOL 5 MG TABLET PO PRN ×2 (13:02→18:35)
[2017-02-13 16:00] VITALS: BP 132/84
[2017-02-13] MEDS: LITHIUM CARBONATE 600 MG CAPSULE PO SCH (20:01)
[2017-02-14] MEDS: FERROUS SULFATE 325 MG EC TABLET PO SCH ×2 (06:39→16:22)
[2017-02-14] MEDS: LEVOTHYROXINE SODIUM 25 MCG TABLET PO SCH (06:39)
[2017-02-14 07:22] LABS: BASOPHILS % (AUTO) 0.5 % (0.0-2.0); EOSINOPHILS % (AUTO) 2.2 % (1.0-6.0); HEMATOCRIT 40.9 % (41-53); HEMOGLOBIN 13.4 g/dL (13.5-17.5); LYMPHOCYTES % (AUTO) 18.4 % (22.0-44.0); MEAN CORPUSCULAR HEMOGLOBIN 29.5 pg (26.0-34.0); MEAN CORPUSCULAR HGB CONC 32.8 G/dL (31.0-37.0); MEAN CORPUSCULAR VOLUME 90 fL (80-100); MONOCYTES # (AUTO) 0.9 K/uL (0.1-1.0); MONOCYTES % (AUTO) 7.9 % (2.0-9.0); NEUTROPHILS # (AUTO) 7.9 K/uL (1.8-7.7); PLATELET COUNT (AUTO) 204 K/uL (150-450); RED BLOOD CELL COUNT(AUTO) 4.55 MIL/uL (4.50-5.90); RED CELL DISTRIBUTION WIDTH 14.3 % (11.5-14.5); WHITE BLOOD COUNT (AUTO) 11.1 K/uL (4.5-11.0)
[2017-02-14] MEDS: CHOLECALCIFEROL (VIT D3) 1,000 UNITS TABLET PO SCH (09:27)
[2017-02-14] MEDS: LITHIUM CARBONATE 300 MG CAPSULE PO SCH (09:27)
[2017-02-14] MEDS: VALPROIC ACID 250 MG/5 ML SYRUP UDCUP PO SCH ×2 (09:27→16:20)
[2017-02-14] MEDS: HALOPERIDOL 5 MG TABLET PO PRN ×2 (09:27→15:09)
[2017-02-14] MEDS: CITALOPRAM HYDROBROMIDE 20 MG TABLET PO SCH (09:27)
[2017-02-14] MEDS: LORazepam 2 MG TABLET PO PRN ×2 (09:27→15:09)
[2017-02-14] MEDS: CloZAPine 100 MG RAPDIS TABLET PO SCH ×2 (09:27→20:25)
[2017-02-14] MEDS: BENZTROPINE MESYLATE 0.5 MG TABLET PO SCH ×2 (09:27→16:24)
[2017-02-14] MEDS: BACITRACIN 28.4 GM OINTMENT TP SCH (09:28)
[2017-02-14 10:53] VITALS: BP 118/83
[2017-02-14 16:48] VITALS: BP 142/96
[2017-02-14] MEDS: LITHIUM CARBONATE 600 MG CAPSULE PO SCH (20:25)
[2017-02-15] MEDS: LEVOTHYROXINE SODIUM 25 MCG TABLET PO SCH (06:50)
[2017-02-15] MEDS: FERROUS SULFATE 325 MG EC TABLET PO SCH ×2 (06:50→17:03)
[2017-02-15 08:08] VITALS: BP 118/73
[2017-02-15] MEDS: BACITRACIN 28.4 GM OINTMENT TP SCH (09:00)
[2017-02-15] MEDS: VALPROIC ACID 250 MG/5 ML SYRUP UDCUP PO SCH ×2 (09:54→17:03)
[2017-02-15] MEDS: CITALOPRAM HYDROBROMIDE 20 MG TABLET PO SCH (09:54)
[2017-02-15] MEDS: BENZTROPINE MESYLATE 0.5 MG TABLET PO SCH ×2 (09:54→17:03)
[2017-02-15] MEDS: CloZAPine 100 MG RAPDIS TABLET PO SCH ×2 (09:55→21:26)
[2017-02-15] MEDS: LITHIUM CARBONATE 300 MG CAPSULE PO SCH (09:55)
[2017-02-15] MEDS: CHOLECALCIFEROL (VIT D3) 1,000 UNITS TABLET PO SCH (09:55)
[2017-02-15] MEDS: LORazepam 2 MG TABLET PO PRN ×2 (10:00→17:03)
[2017-02-15] MEDS: HALOPERIDOL 5 MG TABLET PO PRN ×2 (10:00→17:03)
[2017-02-15 16:54] VITALS: BP 123/91
[2017-02-15] MEDS: LITHIUM CARBONATE 600 MG CAPSULE PO SCH (21:25)
[2017-02-16] MEDS: FERROUS SULFATE 325 MG EC TABLET PO SCH ×2 (06:37→16:54)
[2017-02-16] MEDS: LEVOTHYROXINE SODIUM 25 MCG TABLET PO SCH (06:37)
[2017-02-16] MEDS: CloZAPine 100 MG RAPDIS TABLET PO SCH ×2 (08:13→19:55)
[2017-02-16] MEDS: BENZTROPINE MESYLATE 0.5 MG TABLET PO SCH ×2 (08:14→15:58)
[2017-02-16] MEDS: CITALOPRAM HYDROBROMIDE 20 MG TABLET PO SCH (08:14)
[2017-02-16] MEDS: LITHIUM CARBONATE 300 MG CAPSULE PO SCH (08:16)
[2017-02-16] MEDS: VALPROIC ACID 250 MG/5 ML SYRUP UDCUP PO SCH ×2 (08:16→15:58)
[2017-02-16] MEDS: CHOLECALCIFEROL (VIT D3) 1,000 UNITS TABLET PO SCH (08:16)
[2017-02-16 08:19] VITALS: BP 139/93
[2017-02-16] MEDS: BACITRACIN 28.4 GM OINTMENT TP SCH (10:38)
[2017-02-16] MEDS ORDERED: LORazepam 2 MG/ML VIAL IM ONE (11:30)
[2017-02-16] MEDS ORDERED: DiphenhydrAMINE HCL 50 MG/ML VIAL IM ONE (11:30)
[2017-02-16] MEDS ORDERED: TUBERCULIN, PURIFIED PROTEIN DERIVATIVE 5 TU/0.1 ML SYG ID ONE (14:30)
[2017-02-16 16:00] VITALS: BP 120/95
[2017-02-16] MEDS: LORazepam 2 MG TABLET PO PRN (16:01)
[2017-02-16] MEDS: LITHIUM CARBONATE 600 MG CAPSULE PO SCH (19:55)
[2017-02-16] MEDS: ZOLPIDEM TARTRATE 10 MG TABLET PO PRN (21:26)
[2017-02-17 00:42] VITALS: BP 116/71
[2017-02-17] MEDS: IBUPROFEN 600 MG TABLET PO PRN (00:45)
[2017-02-17] MEDS: LEVOTHYROXINE SODIUM 25 MCG TABLET PO SCH (07:00)
[2017-02-17] MEDS: FERROUS SULFATE 325 MG EC TABLET PO SCH ×2 (07:00→17:05)
[2017-02-17 08:27] VITALS: BP 134/89
[2017-02-17] MEDS: HALOPERIDOL 5 MG TABLET PO PRN ×3 (08:29→17:05)
[2017-02-17] MEDS: CHOLECALCIFEROL (VIT D3) 1,000 UNITS TABLET PO SCH (08:29)
[2017-02-17] MEDS: LORazepam 2 MG TABLET PO PRN ×3 (08:29→17:05)
[2017-02-17] MEDS: CloZAPine 100 MG RAPDIS TABLET PO SCH ×2 (08:30→21:40)
[2017-02-17] MEDS: CITALOPRAM HYDROBROMIDE 20 MG TABLET PO SCH (08:30)
[2017-02-17] MEDS: VALPROIC ACID 250 MG/5 ML SYRUP UDCUP PO SCH ×2 (08:30→17:05)
[2017-02-17] MEDS: LITHIUM CARBONATE 300 MG CAPSULE PO SCH (08:30)
[2017-02-17] MEDS: BENZTROPINE MESYLATE 0.5 MG TABLET PO SCH ×2 (08:30→17:05)
[2017-02-17] MEDS: PALIPERIDONE PALMITATE 234 MG/1.5 ML SYRINGE IM SCH (10:01)
[2017-02-17] MEDS: BACITRACIN 28.4 GM OINTMENT TP SCH (10:01)
[2017-02-17 16:50] VITALS: BP 128/90
[2017-02-17] MEDS: LITHIUM CARBONATE 600 MG CAPSULE PO SCH (21:40)
[2017-02-18] MEDS: ZOLPIDEM TARTRATE 10 MG TABLET PO PRN ×2 (00:55→22:25)
[2017-02-18] MEDS: LEVOTHYROXINE SODIUM 25 MCG TABLET PO SCH (06:52)
[2017-02-18] MEDS: FERROUS SULFATE 325 MG EC TABLET PO SCH ×2 (06:52→16:33)
[2017-02-18] MEDS: LORazepam 2 MG TABLET PO PRN ×3 (07:58→16:19)
[2017-02-18] MEDS: HALOPERIDOL 5 MG TABLET PO PRN ×2 (07:58→12:00)
[2017-02-18] MEDS: LITHIUM CARBONATE 300 MG CAPSULE PO SCH (08:01)
[2017-02-18] MEDS: BENZTROPINE MESYLATE 0.5 MG TABLET PO SCH ×2 (08:01→16:19)
[2017-02-18] MEDS: CloZAPine 100 MG RAPDIS TABLET PO SCH ×2 (08:01→22:19)
[2017-02-18] MEDS: CHOLECALCIFEROL (VIT D3) 1,000 UNITS TABLET PO SCH (08:01)
[2017-02-18] MEDS: CITALOPRAM HYDROBROMIDE 20 MG TABLET PO SCH (08:01)
[2017-02-18] MEDS: VALPROIC ACID 250 MG/5 ML SYRUP UDCUP PO SCH ×2 (08:02→16:19)
[2017-02-18 08:05] VITALS: BP 142/96
[2017-02-18] MEDS: BACITRACIN 28.4 GM OINTMENT TP SCH (11:03)
[2017-02-18 16:12] VITALS: BP 135/90
[2017-02-18] MEDS: LITHIUM CARBONATE 600 MG CAPSULE PO SCH (22:19)
[2017-02-19] MEDS: FERROUS SULFATE 325 MG EC TABLET PO SCH ×2 (06:36→16:48)
[2017-02-19] MEDS: LEVOTHYROXINE SODIUM 25 MCG TABLET PO SCH (06:36)
[2017-02-19 08:10] VITALS: BP 112/83
[2017-02-19] MEDS: LITHIUM CARBONATE 300 MG CAPSULE PO SCH (08:58)
[2017-02-19] MEDS: CHOLECALCIFEROL (VIT D3) 1,000 UNITS TABLET PO SCH (08:58)
[2017-02-19] MEDS: CITALOPRAM HYDROBROMIDE 20 MG TABLET PO SCH (08:58)
[2017-02-19] MEDS: VALPROIC ACID 250 MG/5 ML SYRUP UDCUP PO SCH ×2 (08:58→16:48)
[2017-02-19] MEDS: BENZTROPINE MESYLATE 0.5 MG TABLET PO SCH ×2 (08:59→16:48)
[2017-02-19] MEDS: BACITRACIN 28.4 GM OINTMENT TP SCH (09:00)
[2017-02-19] MEDS: CloZAPine 100 MG RAPDIS TABLET PO SCH ×2 (09:01→23:10)
[2017-02-19] MEDS: HALOPERIDOL 5 MG TABLET PO PRN (11:56)
[2017-02-19] MEDS: LORazepam 2 MG TABLET PO PRN (11:56)
[2017-02-19 21:29] VITALS: BP 120/85
[2017-02-19] MEDS: LITHIUM CARBONATE 600 MG CAPSULE PO SCH (23:10)
[2017-02-20] MEDS: FERROUS SULFATE 325 MG EC TABLET PO SCH ×2 (06:55→17:26)
[2017-02-20] MEDS: LEVOTHYROXINE SODIUM 25 MCG TABLET PO SCH (06:55)
[2017-02-20 08:11] VITALS: BP 120/85
[2017-02-20] MEDS: BENZTROPINE MESYLATE 0.5 MG TABLET PO SCH ×2 (08:39→17:25)
[2017-02-20] MEDS: CITALOPRAM HYDROBROMIDE 20 MG TABLET PO SCH (08:39)
[2017-02-20] MEDS: VALPROIC ACID 250 MG/5 ML SYRUP UDCUP PO SCH ×2 (08:40→17:25)
[2017-02-20] MEDS: CHOLECALCIFEROL (VIT D3) 1,000 UNITS TABLET PO SCH (08:40)
[2017-02-20] MEDS: LITHIUM CARBONATE 300 MG CAPSULE PO SCH (08:40)
[2017-02-20] MEDS: CloZAPine 100 MG RAPDIS TABLET PO SCH ×2 (08:40→20:11)
[2017-02-20] MEDS: BACITRACIN 28.4 GM OINTMENT TP SCH (08:41)
[2017-02-20] MEDS: HALOPERIDOL 5 MG TABLET PO PRN (10:26)
[2017-02-20] MEDS: LORazepam 2 MG TABLET PO PRN (10:26)
[2017-02-20] MEDS ORDERED: LORazepam 2 MG/ML VIAL ONE (12:59)
[2017-02-20] MEDS ORDERED: DiphenhydrAMINE HCL 50 MG/ML VIAL ONE (12:59)
[2017-02-20] MEDS ORDERED: LORazepam 2 MG/ML VIAL IM ONE ×2 (13:00→20:00)
[2017-02-20] MEDS ORDERED: DiphenhydrAMINE HCL 50 MG/ML VIAL IM ONE ×2 (13:00→20:00)
[2017-02-20 16:00] VITALS: BP 126/82
[2017-02-20] MEDS: LITHIUM CARBONATE 600 MG CAPSULE PO SCH (20:11)
[2017-02-20 20:35] VITALS: BP 122/78
[2017-02-20] MEDS: ZOLPIDEM TARTRATE 10 MG TABLET PO PRN (21:56)
[2017-02-21] MEDS: FERROUS SULFATE 325 MG EC TABLET PO SCH ×2 (06:33→17:06)
[2017-02-21] MEDS: LEVOTHYROXINE SODIUM 25 MCG TABLET PO SCH (06:33)
[2017-02-21] MEDS: LORazepam 2 MG TABLET PO PRN ×2 (08:35→15:34)
[2017-02-21] MEDS: CHOLECALCIFEROL (VIT D3) 1,000 UNITS TABLET PO SCH (08:35)
[2017-02-21] MEDS: BENZTROPINE MESYLATE 0.5 MG TABLET PO SCH ×2 (08:36→17:06)
[2017-02-21] MEDS: CITALOPRAM HYDROBROMIDE 20 MG TABLET PO SCH (08:36)
[2017-02-21] MEDS: LITHIUM CARBONATE 300 MG CAPSULE PO SCH (08:36)
[2017-02-21] MEDS: HALOPERIDOL 5 MG TABLET PO PRN ×2 (08:36→15:35)
[2017-02-21] MEDS: VALPROIC ACID 250 MG/5 ML SYRUP UDCUP PO SCH ×2 (08:36→17:06)
[2017-02-21] MEDS: CloZAPine 100 MG RAPDIS TABLET PO SCH ×2 (08:37→20:43)
[2017-02-21] MEDS: BACITRACIN 28.4 GM OINTMENT TP SCH (08:42)
[2017-02-21 09:54] VITALS: BP 119/78
[2017-02-21] MEDS: LITHIUM CARBONATE 600 MG CAPSULE PO SCH (20:43)
[2017-02-22] MEDS: FERROUS SULFATE 325 MG EC TABLET PO SCH ×2 (07:02→17:36)
[2017-02-22] MEDS: LEVOTHYROXINE SODIUM 25 MCG TABLET PO SCH (07:02)
[2017-02-22 08:01] VITALS: BP 117/79
[2017-02-22] MEDS: VALPROIC ACID 250 MG/5 ML SYRUP UDCUP PO SCH ×2 (09:04→17:36)
[2017-02-22] MEDS: HALOPERIDOL 5 MG TABLET PO PRN (09:04)
[2017-02-22] MEDS: LORazepam 2 MG TABLET PO PRN (09:04)
[2017-02-22] MEDS: BENZTROPINE MESYLATE 0.5 MG TABLET PO SCH ×2 (09:05→17:36)
[2017-02-22] MEDS: CloZAPine 100 MG RAPDIS TABLET PO SCH ×2 (09:05→21:09)
[2017-02-22] MEDS: CHOLECALCIFEROL (VIT D3) 1,000 UNITS TABLET PO SCH (09:05)
[2017-02-22] MEDS: LITHIUM CARBONATE 300 MG CAPSULE PO SCH (09:05)
[2017-02-22] MEDS: CITALOPRAM HYDROBROMIDE 20 MG TABLET PO SCH (09:05)
[2017-02-22] MEDS: BACITRACIN 28.4 GM OINTMENT TP SCH (09:06)
[2017-02-22] MEDS ORDERED: DiphenhydrAMINE HCL 50 MG/ML VIAL IM ONE (16:00)
[2017-02-22] MEDS ORDERED: LORazepam 2 MG/ML VIAL IM ONE (16:00)
[2017-02-22 17:00] VITALS: BP 114/72
[2017-02-22] MEDS: LITHIUM CARBONATE 600 MG CAPSULE PO SCH (21:09)
[2017-02-22] MEDS: ZOLPIDEM TARTRATE 10 MG TABLET PO PRN (22:53)
[2017-02-23] MEDS: FERROUS SULFATE 325 MG EC TABLET PO SCH ×2 (06:53→16:24)
[2017-02-23] MEDS: LEVOTHYROXINE SODIUM 25 MCG TABLET PO SCH (06:53)
[2017-02-23 08:02] VITALS: BP 101/67
[2017-02-23] MEDS: LITHIUM CARBONATE 300 MG CAPSULE PO SCH (08:46)
[2017-02-23] MEDS: CHOLECALCIFEROL (VIT D3) 1,000 UNITS TABLET PO SCH (08:46)
[2017-02-23] MEDS: BENZTROPINE MESYLATE 0.5 MG TABLET PO SCH ×2 (08:47→16:23)
[2017-02-23] MEDS: CloZAPine 100 MG RAPDIS TABLET PO SCH ×2 (08:47→20:26)
[2017-02-23] MEDS: CITALOPRAM HYDROBROMIDE 20 MG TABLET PO SCH (08:47)
[2017-02-23] MEDS: VALPROIC ACID 250 MG/5 ML SYRUP UDCUP PO SCH ×2 (08:50→20:26)
[2017-02-23] MEDS: LORazepam 2 MG TABLET PO PRN ×2 (08:52→16:24)
[2017-02-23] MEDS: BACITRACIN 28.4 GM OINTMENT TP SCH (09:50)
[2017-02-23] MEDS: HALOPERIDOL 5 MG TABLET PO PRN (16:25)
[2017-02-23] MEDS ORDERED: HALOPERIDOL LACTATE 5 MG/ML VIAL IM ONE (17:00)
[2017-02-23] MEDS ORDERED: LORazepam 2 MG/ML VIAL IM ONE (17:00)
[2017-02-23] MEDS ORDERED: DiphenhydrAMINE HCL 50 MG/ML VIAL IM ONE (17:00)
[2017-02-23 17:30] VITALS: BP 112/76
[2017-02-23] MEDS: ZOLPIDEM TARTRATE 10 MG TABLET PO PRN (20:25)
[2017-02-23] MEDS: LITHIUM CARBONATE 600 MG CAPSULE PO SCH (20:26)
[2017-02-24] MEDS: LEVOTHYROXINE SODIUM 25 MCG TABLET PO SCH (06:56)
[2017-02-24] MEDS: FERROUS SULFATE 325 MG EC TABLET PO SCH ×2 (06:56→17:34)
[2017-02-24] MEDS: BENZTROPINE MESYLATE 0.5 MG TABLET PO SCH ×2 (08:00→16:32)
[2017-02-24] MEDS: CHOLECALCIFEROL (VIT D3) 1,000 UNITS TABLET PO SCH (08:01)
[2017-02-24] MEDS: CITALOPRAM HYDROBROMIDE 20 MG TABLET PO SCH (08:01)
[2017-02-24] MEDS: LITHIUM CARBONATE 300 MG CAPSULE PO SCH (08:01)
[2017-02-24] MEDS: CloZAPine 100 MG RAPDIS TABLET PO SCH ×2 (08:02→20:04)
[2017-02-24] MEDS: VALPROIC ACID 250 MG/5 ML SYRUP UDCUP PO SCH ×2 (08:02→20:04)
[2017-02-24] MEDS: HALOPERIDOL 5 MG TABLET PO PRN ×2 (08:06→16:32)
[2017-02-24] MEDS: LORazepam 2 MG TABLET PO PRN ×2 (08:06→16:32)
[2017-02-24 08:59] VITALS: BP 104/58
[2017-02-24] MEDS: BACITRACIN 28.4 GM OINTMENT TP SCH (10:10)
[2017-02-24 17:49] VITALS: BP 137/83
[2017-02-24] MEDS: LITHIUM CARBONATE 600 MG CAPSULE PO SCH (20:04)
[2017-02-25] MEDS: LEVOTHYROXINE SODIUM 25 MCG TABLET PO SCH (06:56)
[2017-02-25] MEDS: FERROUS SULFATE 325 MG EC TABLET PO SCH ×2 (06:56→16:41)
[2017-02-25] MEDS: VALPROIC ACID 250 MG/5 ML SYRUP UDCUP PO SCH ×2 (08:05→21:30)
[2017-02-25] MEDS: CHOLECALCIFEROL (VIT D3) 1,000 UNITS TABLET PO SCH (08:05)
[2017-02-25] MEDS: LITHIUM CARBONATE 300 MG CAPSULE PO SCH (08:05)
[2017-02-25 08:06] VITALS: BP 142/74
[2017-02-25] MEDS: CITALOPRAM HYDROBROMIDE 20 MG TABLET PO SCH (08:06)
[2017-02-25] MEDS: BACITRACIN 28.4 GM OINTMENT TP SCH (08:06)
[2017-02-25] MEDS: CloZAPine 100 MG RAPDIS TABLET PO SCH ×2 (08:06→21:30)
[2017-02-25] MEDS: LORazepam 2 MG TABLET PO PRN (08:07)
[2017-02-25] MEDS: BENZTROPINE MESYLATE 0.5 MG TABLET PO SCH ×2 (08:07→16:41)
[2017-02-25] MEDS: HALOPERIDOL 5 MG TABLET PO PRN (09:10)
[2017-02-25 16:52] VITALS: BP 125/75
[2017-02-25] MEDS ORDERED: DiphenhydrAMINE HCL 50 MG/ML VIAL IM ONE (18:30)
[2017-02-25] MEDS ORDERED: HALOPERIDOL LACTATE 5 MG/ML VIAL IM ONE (18:30)
[2017-02-25] MEDS ORDERED: LORazepam 2 MG/ML VIAL IM ONE (18:30)
[2017-02-25] MEDS: LITHIUM CARBONATE 600 MG CAPSULE PO SCH (21:30)
[2017-02-26] MEDS: FERROUS SULFATE 325 MG EC TABLET PO SCH ×2 (06:58→17:00)
[2017-02-26] MEDS: LEVOTHYROXINE SODIUM 25 MCG TABLET PO SCH (06:58)
[2017-02-26 08:09] VITALS: BP 131/77
[2017-02-26] MEDS: VALPROIC ACID 250 MG/5 ML SYRUP UDCUP PO SCH ×2 (08:12→20:17)
[2017-02-26] MEDS: CHOLECALCIFEROL (VIT D3) 1,000 UNITS TABLET PO SCH (08:12)
[2017-02-26] MEDS: CloZAPine 100 MG RAPDIS TABLET PO SCH ×2 (08:12→20:16)
[2017-02-26] MEDS: BENZTROPINE MESYLATE 0.5 MG TABLET PO SCH ×2 (08:12→17:00)
[2017-02-26] MEDS: BACITRACIN 28.4 GM OINTMENT TP SCH (08:12)
[2017-02-26] MEDS: LITHIUM CARBONATE 300 MG CAPSULE PO SCH (08:12)
[2017-02-26] MEDS: CITALOPRAM HYDROBROMIDE 20 MG TABLET PO SCH (08:12)
[2017-02-26] MEDS: LORazepam 2 MG TABLET PO PRN ×2 (08:13→17:00)
[2017-02-26] MEDS: HALOPERIDOL 5 MG TABLET PO PRN ×2 (08:13→17:00)
[2017-02-26 18:28] VITALS: BP 130/94
[2017-02-26] MEDS: LITHIUM CARBONATE 600 MG CAPSULE PO SCH (20:17)
[2017-02-26] MEDS: ZOLPIDEM TARTRATE 10 MG TABLET PO PRN (22:31)
[2017-02-27] MEDS: LEVOTHYROXINE SODIUM 25 MCG TABLET PO SCH (06:46)
[2017-02-27] MEDS: FERROUS SULFATE 325 MG EC TABLET PO SCH ×2 (06:46→16:35)
[2017-02-27] MEDS: LITHIUM CARBONATE 300 MG CAPSULE PO SCH (08:26)
[2017-02-27] MEDS: CITALOPRAM HYDROBROMIDE 20 MG TABLET PO SCH (08:26)
[2017-02-27] MEDS: CHOLECALCIFEROL (VIT D3) 1,000 UNITS TABLET PO SCH (08:26)
[2017-02-27] MEDS: BENZTROPINE MESYLATE 0.5 MG TABLET PO SCH ×2 (08:26→16:23)
[2017-02-27] MEDS: CloZAPine 100 MG RAPDIS TABLET PO SCH ×2 (08:27→20:44)
[2017-02-27] MEDS: LORazepam 2 MG TABLET PO PRN ×2 (08:27→16:23)
[2017-02-27] MEDS: BACITRACIN 28.4 GM OINTMENT TP SCH (08:27)
[2017-02-27] MEDS: VALPROIC ACID 250 MG/5 ML SYRUP UDCUP PO SCH ×2 (08:28→20:43)
[2017-02-27] MEDS: HALOPERIDOL 5 MG TABLET PO PRN ×2 (09:08→16:23)
[2017-02-27 09:12] VITALS: BP 134/88
[2017-02-27 19:33] VITALS: BP 138/84
[2017-02-27] MEDS: LITHIUM CARBONATE 600 MG CAPSULE PO SCH (20:44)
[2017-02-27] MEDS: ZOLPIDEM TARTRATE 10 MG TABLET PO PRN (21:20)
[2017-02-28] MEDS: FERROUS SULFATE 325 MG EC TABLET PO SCH ×2 (06:58→18:21)
[2017-02-28] MEDS: LEVOTHYROXINE SODIUM 25 MCG TABLET PO SCH (06:58)
[2017-02-28 08:26] VITALS: BP 122/88
[2017-02-28] MEDS: CHOLECALCIFEROL (VIT D3) 1,000 UNITS TABLET PO SCH (08:29)
[2017-02-28] MEDS: VALPROIC ACID 250 MG/5 ML SYRUP UDCUP PO SCH ×2 (08:29→21:55)
[2017-02-28] MEDS: LORazepam 2 MG TABLET PO PRN ×3 (08:29→23:44)
[2017-02-28] MEDS: LITHIUM CARBONATE 300 MG CAPSULE PO SCH (08:29)
[2017-02-28] MEDS: CITALOPRAM HYDROBROMIDE 20 MG TABLET PO SCH (08:29)
[2017-02-28] MEDS: BENZTROPINE MESYLATE 0.5 MG TABLET PO SCH ×2 (08:30→18:21)
[2017-02-28] MEDS: HALOPERIDOL 5 MG TABLET PO PRN ×2 (08:30→14:15)
[2017-02-28] MEDS: CloZAPine 100 MG RAPDIS TABLET PO SCH ×2 (08:30→21:55)
[2017-02-28] MEDS: BACITRACIN 28.4 GM OINTMENT TP SCH (08:31)
[2017-02-28] MEDS ORDERED: DiphenhydrAMINE HCL 50 MG/ML VIAL IM ONE (16:30)
[2017-02-28] MEDS ORDERED: LORazepam 2 MG/ML VIAL IM ONE (16:30)
[2017-02-28 17:10] VITALS: BP 128/85
[2017-02-28] MEDS: LITHIUM CARBONATE 600 MG CAPSULE PO SCH (21:56)
[2017-02-28 23:51] VITALS: BP 127/83
[2017-03-01] MEDS: ACETAMINOPHEN 325 MG TABLET PO PRN (00:01)
[2017-03-01] MEDS: ZOLPIDEM TARTRATE 10 MG TABLET PO PRN ×2 (00:02→23:47)
[2017-03-01] MEDS: LEVOTHYROXINE SODIUM 25 MCG TABLET PO SCH (06:56)
[2017-03-01] MEDS: FERROUS SULFATE 325 MG EC TABLET PO SCH ×2 (06:56→21:34)
[2017-03-01] MEDS: BACITRACIN 28.4 GM OINTMENT TP SCH (09:00)
[2017-03-01 09:17] VITALS: BP 125/89
[2017-03-01] MEDS: BENZTROPINE MESYLATE 0.5 MG TABLET PO SCH ×2 (10:38→21:33)
[2017-03-01] MEDS: CITALOPRAM HYDROBROMIDE 20 MG TABLET PO SCH (10:38)
[2017-03-01] MEDS: CloZAPine 100 MG RAPDIS TABLET PO SCH ×2 (10:39→21:33)
[2017-03-01] MEDS: LITHIUM CARBONATE 300 MG CAPSULE PO SCH (10:40)
[2017-03-01] MEDS: VALPROIC ACID 250 MG/5 ML SYRUP UDCUP PO SCH ×2 (10:41→21:33)
[2017-03-01] MEDS: CHOLECALCIFEROL (VIT D3) 1,000 UNITS TABLET PO SCH (10:42)
[2017-03-01] MEDS: HALOPERIDOL 5 MG TABLET PO PRN (10:46)
[2017-03-01] MEDS: LORazepam 2 MG TABLET PO PRN ×2 (10:46→23:47)
[2017-03-01] MEDS ORDERED: LORazepam 2 MG/ML VIAL IM ONE (17:00)
[2017-03-01] MEDS ORDERED: DiphenhydrAMINE HCL 50 MG/ML VIAL IM ONE (17:00)
[2017-03-01] MEDS ORDERED: LORazepam 2 MG/ML VIAL ONE (17:02)
[2017-03-01] MEDS ORDERED: DiphenhydrAMINE HCL 50 MG/ML VIAL ONE (17:02)
[2017-03-01 17:30] VITALS: BP 122/78
[2017-03-01] MEDS: LITHIUM CARBONATE 600 MG CAPSULE PO SCH (21:33)
[2017-03-01] MEDS: IBUPROFEN 600 MG TABLET PO PRN (23:47)
[2017-03-01 23:48] VITALS: BP 131/71
[2017-03-02] MEDS: FERROUS SULFATE 325 MG EC TABLET PO SCH ×2 (06:44→16:56)
[2017-03-02] MEDS: LEVOTHYROXINE SODIUM 25 MCG TABLET PO SCH (06:44)
[2017-03-02 08:15] VITALS: BP 116/70
[2017-03-02] MEDS: BENZTROPINE MESYLATE 0.5 MG TABLET PO SCH ×2 (09:33→16:16)
[2017-03-02] MEDS: LITHIUM CARBONATE 300 MG CAPSULE PO SCH (09:33)
[2017-03-02] MEDS: LORazepam 2 MG TABLET PO PRN ×2 (09:33→13:33)
[2017-03-02] MEDS: CloZAPine 100 MG RAPDIS TABLET PO SCH ×2 (09:33→20:07)
[2017-03-02] MEDS: HALOPERIDOL 5 MG TABLET PO PRN ×2 (09:33→13:33)
[2017-03-02] MEDS: VALPROIC ACID 250 MG/5 ML SYRUP UDCUP PO SCH ×2 (09:33→20:08)
[2017-03-02] MEDS: CHOLECALCIFEROL (VIT D3) 1,000 UNITS TABLET PO SCH (09:33)
[2017-03-02] MEDS: CITALOPRAM HYDROBROMIDE 20 MG TABLET PO SCH (09:33)
[2017-03-02] MEDS: BACITRACIN 28.4 GM OINTMENT TP SCH (09:40)
[2017-03-02] MEDS: LITHIUM CARBONATE 600 MG CAPSULE PO SCH (20:07)
[2017-03-02] MEDS: ZOLPIDEM TARTRATE 10 MG TABLET PO PRN (21:14)
[2017-03-02 21:30] VITALS: BP 130/79
[2017-03-03] MEDS: LORazepam 2 MG TABLET PO PRN ×4 (01:17→23:44)
[2017-03-03] MEDS: HALOPERIDOL 5 MG TABLET PO PRN ×4 (01:17→23:44)
[2017-03-03 01:51] VITALS: BP 125/95
[2017-03-03] MEDS: FERROUS SULFATE 325 MG EC TABLET PO SCH ×2 (06:41→16:43)
[2017-03-03] MEDS: LEVOTHYROXINE SODIUM 25 MCG TABLET PO SCH (06:41)
[2017-03-03 08:23] VITALS: BP 103/60
[2017-03-03] MEDS: CloZAPine 100 MG RAPDIS TABLET PO SCH ×2 (09:26→20:15)
[2017-03-03] MEDS: CHOLECALCIFEROL (VIT D3) 1,000 UNITS TABLET PO SCH (09:26)
[2017-03-03] MEDS: CITALOPRAM HYDROBROMIDE 20 MG TABLET PO SCH (09:26)
[2017-03-03] MEDS: VALPROIC ACID 250 MG/5 ML SYRUP UDCUP PO SCH ×2 (09:26→20:15)
[2017-03-03] MEDS: LITHIUM CARBONATE 300 MG CAPSULE PO SCH (09:27)
[2017-03-03] MEDS: BACITRACIN 28.4 GM OINTMENT TP SCH (09:27)
[2017-03-03] MEDS: BENZTROPINE MESYLATE 0.5 MG TABLET PO SCH ×2 (09:27→16:05)
[2017-03-03 16:10] VITALS: BP 126/81
[2017-03-03] MEDS: LITHIUM CARBONATE 600 MG CAPSULE PO SCH (20:15)
[2017-03-03] MEDS: ZOLPIDEM TARTRATE 10 MG TABLET PO PRN (21:08)
[2017-03-03 23:40] VITALS: BP 126/78
[2017-03-03] MEDS: IBUPROFEN 600 MG TABLET PO PRN (23:44)
[2017-03-04] MEDS: LEVOTHYROXINE SODIUM 25 MCG TABLET PO SCH (06:34)
[2017-03-04] MEDS: FERROUS SULFATE 325 MG EC TABLET PO SCH ×2 (06:34→16:20)
[2017-03-04 08:11] VITALS: BP 119/70
[2017-03-04] MEDS: CHOLECALCIFEROL (VIT D3) 1,000 UNITS TABLET PO SCH (08:46)
[2017-03-04] MEDS: VALPROIC ACID 250 MG/5 ML SYRUP UDCUP PO SCH ×2 (08:47→20:26)
[2017-03-04] MEDS: LITHIUM CARBONATE 300 MG CAPSULE PO SCH (08:47)
[2017-03-04] MEDS: CITALOPRAM HYDROBROMIDE 20 MG TABLET PO SCH (08:48)
[2017-03-04] MEDS: BENZTROPINE MESYLATE 0.5 MG TABLET PO SCH ×2 (08:48→16:21)
[2017-03-04] MEDS: CloZAPine 100 MG RAPDIS TABLET PO SCH ×2 (08:49→20:27)
[2017-03-04] MEDS: BACITRACIN 28.4 GM OINTMENT TP SCH (08:50)
[2017-03-04 18:09] VITALS: BP 125/96
[2017-03-04] MEDS: LITHIUM CARBONATE 600 MG CAPSULE PO SCH (20:26)
[2017-03-04] MEDS: ZOLPIDEM TARTRATE 10 MG TABLET PO PRN (21:10)
[2017-03-04] MEDS: IBUPROFEN 600 MG TABLET PO PRN (21:53)
[2017-03-05] MEDS: FERROUS SULFATE 325 MG EC TABLET PO SCH ×2 (06:36→16:29)
[2017-03-05] MEDS: LEVOTHYROXINE SODIUM 25 MCG TABLET PO SCH (06:36)
[2017-03-05] MEDS: LORazepam 2 MG TABLET PO PRN (07:59)
[2017-03-05] MEDS: CHOLECALCIFEROL (VIT D3) 1,000 UNITS TABLET PO SCH (07:59)
[2017-03-05] MEDS: VALPROIC ACID 250 MG/5 ML SYRUP UDCUP PO SCH ×2 (07:59→21:23)
[2017-03-05] MEDS: LITHIUM CARBONATE 600 MG CAPSULE PO SCH ×2 (07:59→20:45)
[2017-03-05] MEDS: HALOPERIDOL 5 MG TABLET PO PRN (07:59)
[2017-03-05 08:00] VITALS: BP 109/65
[2017-03-05] MEDS: BENZTROPINE MESYLATE 0.5 MG TABLET PO SCH ×2 (08:00→16:29)
[2017-03-05] MEDS: CloZAPine 100 MG RAPDIS TABLET PO SCH ×2 (08:00→20:45)
[2017-03-05] MEDS: BACITRACIN 28.4 GM OINTMENT TP SCH (08:00)
[2017-03-05] MEDS: CITALOPRAM HYDROBROMIDE 20 MG TABLET PO SCH (08:03)
[2017-03-05] MEDS ORDERED: LORazepam 2 MG/ML VIAL IM ONE (09:30)
[2017-03-05] MEDS ORDERED: DiphenhydrAMINE HCL 50 MG/ML VIAL IM ONE (09:30)
[2017-03-05] MEDS: IBUPROFEN 600 MG TABLET PO PRN (12:35)
[2017-03-05] MEDS: ZOLPIDEM TARTRATE 10 MG TABLET PO PRN (20:45)
[2017-03-05 21:18] VITALS: BP 122/85
[2017-03-05] MEDS: MAG HYDROX/AL HYDROX/SIMETH ES 30 ML SUSPENSION UDCUP PO PRN (21:23)
[2017-03-05] MEDS: ACETAMINOPHEN 325 MG TABLET PO PRN (21:55)
[2017-03-06] MEDS: LORazepam 2 MG TABLET PO PRN (02:34)
[2017-03-06] MEDS: HALOPERIDOL 5 MG TABLET PO PRN (02:40)
[2017-03-06] MEDS: LEVOTHYROXINE SODIUM 25 MCG TABLET PO SCH (06:59)
[2017-03-06] MEDS: FERROUS SULFATE 325 MG EC TABLET PO SCH ×2 (06:59→16:19)
[2017-03-06] MEDS: LITHIUM CARBONATE 600 MG CAPSULE PO SCH ×2 (08:14→20:41)
[2017-03-06] MEDS: CHOLECALCIFEROL (VIT D3) 1,000 UNITS TABLET PO SCH (08:14)
[2017-03-06] MEDS: CloZAPine 100 MG RAPDIS TABLET PO SCH ×2 (08:15→20:40)
[2017-03-06] MEDS: BENZTROPINE MESYLATE 0.5 MG TABLET PO SCH ×2 (08:16→16:19)
[2017-03-06] MEDS: BACITRACIN 28.4 GM OINTMENT TP SCH (08:16)
[2017-03-06] MEDS: CITALOPRAM HYDROBROMIDE 20 MG TABLET PO SCH (08:16)
[2017-03-06] MEDS: VALPROIC ACID 250 MG/5 ML SYRUP UDCUP PO SCH ×2 (08:18→21:00)
[2017-03-06 08:23] VITALS: BP 127/88
[2017-03-06 18:22] VITALS: BP 129/78
[2017-03-06] MEDS: ZOLPIDEM TARTRATE 10 MG TABLET PO PRN ×2 (20:25→20:40)
[2017-03-06] MEDS ORDERED: DIVALPROEX SODIUM 125 MG DR CAPSULE PO ONE (21:00)
[2017-03-06] MEDS: MAG HYDROX/AL HYDROX/SIMETH ES 30 ML SUSPENSION UDCUP PO PRN (22:11)
[2017-03-06] MEDS: ACETAMINOPHEN 325 MG TABLET PO PRN (22:15)
[2017-03-07] MEDS: FERROUS SULFATE 325 MG EC TABLET PO SCH ×2 (06:39→16:57)
[2017-03-07] MEDS: LEVOTHYROXINE SODIUM 25 MCG TABLET PO SCH (06:39)
[2017-03-07 07:04] LABS: BASOPHILS % (AUTO) 0.7 % (0.0-2.0); EOSINOPHILS % (AUTO) 3.5 % (1.0-6.0); HEMATOCRIT 40.7 % (41-53); HEMOGLOBIN 13.3 g/dL (13.5-17.5); LYMPHOCYTES # (AUTO) 2.7 K/uL (1.0-4.8); LYMPHOCYTES % (AUTO) 31.3 % (22.0-44.0); MEAN CORPUSCULAR HEMOGLOBIN 29.5 pg (26.0-34.0); MEAN CORPUSCULAR HGB CONC 32.6 G/dL (31.0-37.0); MEAN CORPUSCULAR VOLUME 91 fL (80-100); MONOCYTES # (AUTO) 0.7 K/uL (0.1-1.0); MONOCYTES % (AUTO) 8.1 % (2.0-9.0); NEUTROPHILS # (AUTO) 4.9 K/uL (1.8-7.7); NEUTROPHILS % (AUTO) 56.4 % (40.0-70.0); PLATELET COUNT (AUTO) 206 K/uL (150-450); RED BLOOD CELL COUNT(AUTO) 4.49 MIL/uL (4.50-5.90); RED CELL DISTRIBUTION WIDTH 13.9 % (11.5-14.5); WHITE BLOOD COUNT (AUTO) 8.7 K/uL (4.5-11.0)
[2017-03-07] MEDS: VALPROIC ACID 250 MG/5 ML SYRUP UDCUP PO SCH ×2 (09:41→21:44)
[2017-03-07] MEDS: CHOLECALCIFEROL (VIT D3) 1,000 UNITS TABLET PO SCH (09:41)
[2017-03-07] MEDS: BACITRACIN 28.4 GM OINTMENT TP SCH (09:41)
[2017-03-07] MEDS: LITHIUM CARBONATE 600 MG CAPSULE PO SCH ×2 (09:41→21:44)
[2017-03-07] MEDS: CloZAPine 100 MG RAPDIS TABLET PO SCH ×2 (09:41→21:44)
[2017-03-07] MEDS: HALOPERIDOL 5 MG TABLET PO PRN ×2 (09:41→16:57)
[2017-03-07] MEDS: LORazepam 2 MG TABLET PO PRN ×2 (09:41→16:57)
[2017-03-07] MEDS: BENZTROPINE MESYLATE 0.5 MG TABLET PO SCH ×2 (09:41→16:57)
[2017-03-07] MEDS: CITALOPRAM HYDROBROMIDE 20 MG TABLET PO SCH (09:41)
[2017-03-07 12:17] VITALS: BP 100/58
[2017-03-07 16:14] VITALS: BP 127/81
[2017-03-07] MEDS ORDERED: HALOPERIDOL LACTATE 5 MG/ML VIAL IM ONE (19:00)
[2017-03-07] MEDS ORDERED: DiphenhydrAMINE HCL 50 MG/ML VIAL IM ONE (19:00)
[2017-03-07] MEDS ORDERED: LORazepam 2 MG/ML VIAL IM ONE (19:00)
[2017-03-07 19:25] VITALS: BP 146/83
[2017-03-07] MEDS: IBUPROFEN 600 MG TABLET PO PRN (19:25)
[2017-03-07] MEDS: ZOLPIDEM TARTRATE 10 MG TABLET PO PRN (21:45)
[2017-03-08] MEDS: FERROUS SULFATE 325 MG EC TABLET PO SCH ×2 (06:56→17:30)
[2017-03-08] MEDS: LEVOTHYROXINE SODIUM 25 MCG TABLET PO SCH (06:56)
[2017-03-08] MEDS: LITHIUM CARBONATE 600 MG CAPSULE PO SCH ×2 (08:45→21:30)
[2017-03-08] MEDS: CHOLECALCIFEROL (VIT D3) 1,000 UNITS TABLET PO SCH (08:46)
[2017-03-08] MEDS: LORazepam 2 MG TABLET PO PRN ×3 (08:47→19:42)
[2017-03-08] MEDS: HALOPERIDOL 5 MG TABLET PO PRN ×3 (08:47→19:42)
[2017-03-08] MEDS: BENZTROPINE MESYLATE 0.5 MG TABLET PO SCH ×2 (08:47→17:30)
[2017-03-08] MEDS: CITALOPRAM HYDROBROMIDE 20 MG TABLET PO SCH (08:47)
[2017-03-08] MEDS: VALPROIC ACID 250 MG/5 ML SYRUP UDCUP PO SCH ×2 (08:49→21:29)
[2017-03-08] MEDS: CloZAPine 100 MG RAPDIS TABLET PO SCH ×2 (08:51→21:29)
[2017-03-08] MEDS: BACITRACIN 28.4 GM OINTMENT TP SCH (11:57)
[2017-03-08 12:39] VITALS: BP 118/58
[2017-03-08] MEDS ORDERED: DiphenhydrAMINE HCL 50 MG/ML VIAL ONE (15:05)
[2017-03-08] MEDS ORDERED: LORazepam 2 MG/ML VIAL ONE (15:05)
[2017-03-08] MEDS ORDERED: LORazepam 2 MG/ML VIAL IM ONE (15:15)
[2017-03-08] MEDS ORDERED: DiphenhydrAMINE HCL 50 MG/ML VIAL IM ONE (15:15)
[2017-03-08 16:30] VITALS: BP 126/89
[2017-03-08] MEDS: ZOLPIDEM TARTRATE 10 MG TABLET PO PRN (23:57)
[2017-03-09] MEDS: FERROUS SULFATE 325 MG EC TABLET PO SCH ×2 (07:05→17:16)
[2017-03-09] MEDS: LEVOTHYROXINE SODIUM 25 MCG TABLET PO SCH (07:05)
[2017-03-09] MEDS: BACITRACIN 28.4 GM OINTMENT TP SCH (09:00)
[2017-03-09] MEDS: CHOLECALCIFEROL (VIT D3) 1,000 UNITS TABLET PO SCH (09:48)
[2017-03-09] MEDS: LITHIUM CARBONATE 600 MG CAPSULE PO SCH ×2 (09:48→21:07)
[2017-03-09] MEDS: CloZAPine 100 MG RAPDIS TABLET PO SCH ×2 (09:48→21:07)
[2017-03-09] MEDS: BENZTROPINE MESYLATE 0.5 MG TABLET PO SCH ×2 (09:49→17:16)
[2017-03-09] MEDS: CITALOPRAM HYDROBROMIDE 20 MG TABLET PO SCH (09:49)
[2017-03-09 10:14] VITALS: BP 106/66
[2017-03-09] MEDS: HALOPERIDOL 5 MG TABLET PO PRN (17:16)
[2017-03-09] MEDS: LORazepam 2 MG TABLET PO PRN (17:16)
[2017-03-09 19:43] VITALS: BP 125/85
[2017-03-09] MEDS: VALPROIC ACID 250 MG/5 ML SYRUP UDCUP PO SCH (21:06)
[2017-03-10] MEDS: ZOLPIDEM TARTRATE 10 MG TABLET PO PRN ×2 (02:00→20:59)
[2017-03-10] MEDS: LORazepam 2 MG TABLET PO PRN ×3 (02:00→15:43)
[2017-03-10] MEDS: LEVOTHYROXINE SODIUM 25 MCG TABLET PO SCH (07:02)
[2017-03-10] MEDS: FERROUS SULFATE 325 MG EC TABLET PO SCH ×2 (07:02→17:59)
[2017-03-10] MEDS: LITHIUM CARBONATE 600 MG CAPSULE PO SCH ×2 (09:48→20:38)
[2017-03-10] MEDS: CloZAPine 100 MG RAPDIS TABLET PO SCH ×2 (09:49→20:38)
[2017-03-10] MEDS: CHOLECALCIFEROL (VIT D3) 1,000 UNITS TABLET PO SCH (09:49)
[2017-03-10] MEDS: HALOPERIDOL 5 MG TABLET PO PRN ×2 (09:49→15:43)
[2017-03-10] MEDS: BENZTROPINE MESYLATE 0.5 MG TABLET PO SCH ×2 (09:51→16:12)
[2017-03-10] MEDS: CITALOPRAM HYDROBROMIDE 20 MG TABLET PO SCH (09:51)
[2017-03-10] MEDS: BACITRACIN 28.4 GM OINTMENT TP SCH (09:51)
[2017-03-10 11:24] VITALS: BP 115/73
[2017-03-10 17:00] VITALS: BP 121/81
[2017-03-10] MEDS: VALPROIC ACID 250 MG/5 ML SYRUP UDCUP PO SCH (20:38)
[2017-03-10] MEDS: ACETAMINOPHEN 325 MG TABLET PO PRN (23:56)
[2017-03-11] MEDS: LORazepam 2 MG TABLET PO PRN ×2 (00:07→18:23)
[2017-03-11] MEDS: HALOPERIDOL 5 MG TABLET PO PRN ×2 (00:07→18:24)
[2017-03-11] MEDS: LEVOTHYROXINE SODIUM 25 MCG TABLET PO SCH (07:03)
[2017-03-11] MEDS: FERROUS SULFATE 325 MG EC TABLET PO SCH ×2 (07:03→17:15)
[2017-03-11] MEDS: CloZAPine 100 MG RAPDIS TABLET PO SCH ×2 (08:05→20:09)
[2017-03-11] MEDS: LITHIUM CARBONATE 600 MG CAPSULE PO SCH ×2 (08:05→20:09)
[2017-03-11] MEDS: CHOLECALCIFEROL (VIT D3) 1,000 UNITS TABLET PO SCH (08:05)
[2017-03-11] MEDS: BENZTROPINE MESYLATE 0.5 MG TABLET PO SCH ×2 (08:05→17:15)
[2017-03-11] MEDS: CITALOPRAM HYDROBROMIDE 20 MG TABLET PO SCH (08:05)
[2017-03-11 08:17] VITALS: BP 135/89
[2017-03-11] MEDS: BACITRACIN 28.4 GM OINTMENT TP SCH (09:47)
[2017-03-11 18:49] VITALS: BP 114/90
[2017-03-11] MEDS: VALPROIC ACID 250 MG/5 ML SYRUP UDCUP PO SCH (20:08)
[2017-03-11] MEDS: ZOLPIDEM TARTRATE 10 MG TABLET PO PRN (22:54)
[2017-03-12] MEDS: FERROUS SULFATE 325 MG EC TABLET PO SCH ×2 (06:44→17:32)
[2017-03-12] MEDS: LEVOTHYROXINE SODIUM 25 MCG TABLET PO SCH (06:45)
[2017-03-12 08:09] VITALS: BP 116/68
[2017-03-12] MEDS: CITALOPRAM HYDROBROMIDE 20 MG TABLET PO SCH (09:03)
[2017-03-12] MEDS: LITHIUM CARBONATE 600 MG CAPSULE PO SCH ×2 (09:03→20:12)
[2017-03-12] MEDS: BENZTROPINE MESYLATE 0.5 MG TABLET PO SCH ×2 (09:04→17:32)
[2017-03-12] MEDS: CHOLECALCIFEROL (VIT D3) 1,000 UNITS TABLET PO SCH (09:04)
[2017-03-12] MEDS: CloZAPine 100 MG RAPDIS TABLET PO SCH ×2 (09:04→20:12)
[2017-03-12] MEDS: BACITRACIN 28.4 GM OINTMENT TP SCH (09:06)
[2017-03-12] MEDS: LORazepam 2 MG TABLET PO PRN ×2 (14:44→18:46)
[2017-03-12] MEDS: HALOPERIDOL 5 MG TABLET PO PRN ×2 (14:44→18:47)
[2017-03-12] MEDS: VALPROIC ACID 250 MG/5 ML SYRUP UDCUP PO SCH (20:11)
[2017-03-12] MEDS: ZOLPIDEM TARTRATE 10 MG TABLET PO PRN (21:13)
[2017-03-13] MEDS: HALOPERIDOL 5 MG TABLET PO PRN ×3 (03:32→16:35)
[2017-03-13] MEDS: LORazepam 2 MG TABLET PO PRN ×3 (03:32→16:35)
[2017-03-13] MEDS: IBUPROFEN 600 MG TABLET PO PRN ×2 (03:40→23:49)
[2017-03-13] MEDS: LEVOTHYROXINE SODIUM 25 MCG TABLET PO SCH (06:56)
[2017-03-13] MEDS: FERROUS SULFATE 325 MG EC TABLET PO SCH ×2 (06:57→16:32)
[2017-03-13] MEDS: CITALOPRAM HYDROBROMIDE 20 MG TABLET PO SCH (08:05)
[2017-03-13] MEDS: BENZTROPINE MESYLATE 0.5 MG TABLET PO SCH ×2 (08:05→16:32)
[2017-03-13] MEDS: LITHIUM CARBONATE 600 MG CAPSULE PO SCH ×2 (08:05→20:30)
[2017-03-13] MEDS: CloZAPine 100 MG RAPDIS TABLET PO SCH ×2 (08:05→20:30)
[2017-03-13] MEDS: CHOLECALCIFEROL (VIT D3) 1,000 UNITS TABLET PO SCH (08:05)
[2017-03-13] MEDS: BACITRACIN 28.4 GM OINTMENT TP SCH (08:06)
[2017-03-13] MEDS ORDERED: [UNRECOGNIZED DRUG - CODE] PO (09:34)
[2017-03-13] MEDS ORDERED: PALI234D IM (09:34)
[2017-03-13] MEDS ORDERED: VALP5L PO (09:34)
[2017-03-13] MEDS ORDERED: LITH600 PO (09:34)
[2017-03-13] MEDS ORDERED: FERR-89 PO (09:38)
[2017-03-13] MEDS ORDERED: VITAD1000 PO (09:38)
[2017-03-13] MEDS ORDERED: BACI30OI6 TP (09:38)
[2017-03-13] MEDS: VALPROIC ACID 250 MG/5 ML SYRUP UDCUP PO SCH ×2 (10:27→20:30)
[2017-03-13 11:15] VITALS: BP 125/82
[2017-03-13 18:03] VITALS: BP 130/83
[2017-03-13] MEDS: ZOLPIDEM TARTRATE 10 MG TABLET PO PRN (21:14)
[2017-03-13 23:50] VITALS: BP_SYST 113; BP_SYST 137; BP_DIAS 79; BP_DIAS 96
[2017-03-14] MEDS: LEVOTHYROXINE SODIUM 25 MCG TABLET PO SCH (06:58)
[2017-03-14] MEDS: FERROUS SULFATE 325 MG EC TABLET PO SCH (06:58)
[2017-03-14] MEDS: CloZAPine 100 MG RAPDIS TABLET PO SCH (08:02)
[2017-03-14] MEDS: LITHIUM CARBONATE 600 MG CAPSULE PO SCH (08:02)
[2017-03-14] MEDS: VALPROIC ACID 250 MG/5 ML SYRUP UDCUP PO SCH (08:02)
[2017-03-14] MEDS: BENZTROPINE MESYLATE 0.5 MG TABLET PO SCH (08:02)
[2017-03-14] MEDS: CITALOPRAM HYDROBROMIDE 20 MG TABLET PO SCH (08:03)
[2017-03-14] MEDS: CHOLECALCIFEROL (VIT D3) 1,000 UNITS TABLET PO SCH (08:03)
[2017-03-14] MEDS: BACITRACIN 28.4 GM OINTMENT TP SCH (08:03)
[2017-03-17 12:10] LABS: CLOZAPINE 1117 ng/mL (350-650); CLOZAPINE & NORCLOZAPINE 1401 ng/mL; NORCLOZAPINE 284 ng/mL (Not Estab.)
== END 2017-03-14 10:20 | DRG 750 ==
LOC: EMS 13:22 → 3EC 21:36
PROVIDERS: ATTEND Psychiatry & Neurology Psychiatry
DX: F20.1 Disorganized schizophrenia (principal); E55.9 Vitamin D deficiency, unspecified; E03.9 Hypothyroidism, unspecified; F12.90 Cannabis use, unspecified, uncomplicated; D64.9 Anemia, unspecified; S60.511A Abrasion of right hand, initial encounter; K59.00 Constipation, unspecified; Z72.0 Tobacco use; G47.00 Insomnia, unspecified; K21.9 Gastro-esophageal reflux disease without esophagitis; S60.512A Abrasion of left hand, initial encounter; X58.XXXA Exposure to other specified factors, initial encounter; Y92.238 Other place in hospital as the place of occurrence of the external cause; L29.9 Pruritus, unspecified
CPT/HCPCS: 80159; 87081; 99285; J1200; J1630; J2060; J3230; J3490; Q0162